=== PATIENT | male | born 1970 | race Caucasian/White ===

== ENCOUNTER 2023-09-25 15:02 | Emergency (ER) | payer OTHER, SELFPAY ==
[2023-09-25 15:21] VITALS: BP 136/101; PULSE 98; RESP 15; TEMP 36.9; O2SAT 96
--- NOTE | 2023-09-25 16:08 | ED.GENADULT ---
HPI - General Adult General Chief complaint: Nausea/Vomiting/Diarrhea Stated complaint: Swelling and Discomfort Time Seen by Provider: 09/25/23 16:15 Source: patient, RN notes reviewed and old records reviewed Mode of arrival: ambulatory Limitations: no limitations History of Present Illness HPI narrative: 53-year-old male to [facility] for complaint of abdominal swelling And diarrhea for 6 weeks. Patient reports history of ulcerative colitis and C diff. Patient reports seeing attorney law clerk 2 months ago and recently undergoing stool diagnostics through [facility]. Patient states he was called this morning with results and not offered medications. Patient states he is upset that he has not been given antibiotics by any provider over the past 8 weeks. Patient requesting course of antibiotics. Patient states that he is tired of dicking around With his symptoms without getting antibiotic treatment. Patient denies blood in stool, abdominal pain, nausea, vomiting, fever, Appetite changes, urinary changes, allergies, shortness of breath, chest pain. Patient able to tolerate fluids by mouth. Respirations even and nonlabored. Patient hypertensive in triage. Patient in no acute distress. Related Data Home Medications Medication Instructions Recorded Confirmed omeprazole 20 mg capsule,delayed 20 mg PO DAILY 09/25/23 09/25/23 release sulfasalazine 500 mg tablet 2,000 mg PO 09/25/23 Allergies Allergy/AdvReac Type Severity Reaction Status Date / Time No Known Allergies Allergy Verified 09/25/23 15:24 Review of Systems Review of Systems: All systems reviewed & are unremarkable except as noted in HPI and below Constitutional: Constitutional: Reports no additional constitutional complaints Eyes: Eyes: Reports no additional eye complaints ENT: Reports system reviewed and no additional complaints, except as documented Cardiovascular: Cardiovascular: Reports no additional cardiovascular complaints, Denies chest pain and Denies dyspnea Respiratory: Respiratory: Reports no additional respiratory complaints, Denies cough and Denies dyspnea Gastrointestinal: Gastrointestinal: Reports as per HPI, Denies abdominal pain, Denies melena, Reports bloating, Denies hematochezia, Denies constipation, Denies dysphagia, Reports diarrhea, Denies nausea and Denies vomiting Musculoskeletal: Musculoskeletal: Reports no additional musculoskeletal complaints Neurologic: Reports system reviewed and no additional complaints, except as documented Psychiatric: Psychiatric: Reports no additional psychiatric complaints PMFSH Comments At the time of my signature, I reviewed and agree with the nursing past medical, surgical, social, and family history. There is no relevant family history pertinent to the patient complaint. Exam Const: General: comfortable, no acute distress, well developed, alert, anxious, well groomed and well nourished Nutritional Appearance: well nourished Orientation/consciousness: patient oriented x3 Limitations: no limitations HENMT: Head: normal to inspection Ears: external ears normal Face/Nose/Sinus: Normal external nose present, Normal nares present, normal facial exam, No erythema and No edema Face and sinus: normal facial exam, no erythema and no edema Mouth: Yes Normal oral and palatal mucosa present Eyes: General: appearance normal, both eyes and all related structures Neck: Neck: normal visual inspection, full ROM and no meningeal signs Chest: Chest palpation & inspection: normal inspection of the chest Resp: Effort & Inspection: normal respiratory effort and able to speak in complete sentences Cardio: Jugular venous distension: no JVD Rate: regular rate Rhythm: regular rhythm Back/Spine/Pelvis: Cervical Spine: cervical ROM normal Skin: General skin exam: normal color, no rashes or lesions noted and turgor normal Neuro: General: patient oriented x3, gait normal, moves all extremities and no
== END 2023-09-25 16:28 | disposition left against medical advice (07) ==
PROVIDERS: Emergency Provider Nurse Practitioner Family; PCP Nurse Practitioner
DX: R19.7 Diarrhea, unspecified (principal)
CPT/HCPCS: 99211; G0463

== ENCOUNTER 2023-11-13 09:50 | Outpatient (CLI) | payer OTHER, SELFPAY ==
[2023-11-13 18:54] LABS: Basophils Absolute Auto 0.1 K/mm3 (0.0-0.1); Basophils Percent Auto 1.4 % (0.2-1.2); Eosinophils Absolute Auto 0.2 K/mm3 (0-0.3); Eosinophils Percent Auto 3.1 % (0-4.4); Hematocrit 43.1 % (42.0-52.0); Hemoglobin 14.4 g/dL (14.0-18.0); Immature Granulocyte Absolute 0.01 K/mm3 (0.00-0.031); Immature Granulocyte Percent A 0.2 % (0-0.5); Lymphocytes Absolute Auto 1.82 K/mm3 (0.9-3.2); Mean Corpuscular HGB Conc 33.4 g/dl (32-36); Mean Corpuscular Hemoglobin 30.7 pg (26-34); Mean Corpuscular Volume 91.9 fl (80-100); Mean Platelet Volume 10.5 fl (7.4-10.4); Monocytes Absolute Auto 0.5 K/mm3 (0.1-0.6); Monocytes Percent Auto 7.1 % (2.6-8.5); Neutrophils Absolute Auto 3.9 K/mm3 (1.3-6.7); Neutrophils Percent Auto 60.2 % (45.5-73.1); Platelet Count Result 278 k/mm3 (150-375); Red Blood Count 4.69 M/mm3 (4.6-6.20); Red Cell Distribution Width 12.8 % (11.5-14.5); White Blood Count 6.5 K/mm3 (4.5-10.0)
[2023-11-13 20:36] LABS: Alanine Aminotransferase 44 U/L (6-50); Albumin Level 4.6 g/dL (3.5-5.1); Alkaline Phosphatase 68 U/L (38-126); Anion Gap 8 mmol/L (4-12); Aspartate Amino Transferase 35 U/L (17-59); Bilirubin,Total 0.8 mg/dL (0.2-1.3); Blood Urea Nitrogen 18 mg/dL (9-20); Calcium 9.9 mg/dL (8.4-10.2); Carbon Dioxide 25 mmol/L (22-30); Chloride 105 mmol/L (98-107); Cholesterol 222 mg/dL (0-200); Estimated Glomerular Filt Rate > 60; Glucose 114 mg/dL (65-110); HDL Direct 52 mg/dL; Potassium 4.2 mmol/L (3.4-5.0); Sodium 138 mmol/L (137-145); Triglycerides 119 mg/dL (<150)
[2023-11-13 20:47] LABS: LDL Cholesterol Direct 134 mg/dL
[2023-11-13 21:06] LABS: Prostate Specific Antigen 1.9 ng/mL (< OR = 4.0)
[2023-11-14 08:25] LABS: Hemoglobin A1C 4.4 % (<5.7)
[2023-11-20 16:24] LABS: Apolipoprotein B 120 mg/dL
== END 2023-11-13 09:51 | disposition home or self-care (01) ==
LOC: ANHGOSHLAB 09:51
PROVIDERS: PCP Nurse Practitioner; Visit Provider Nurse Practitioner
DX: Z12.5 Encounter for screening for malignant neoplasm of prostate (principal); I10 Essential (primary) hypertension; R73.9 Hyperglycemia, unspecified
CPT/HCPCS: 36415; 80053; 80061; 82172; 83036; 84153; 85025; G0103

== ENCOUNTER 2024-03-11 10:48 | Outpatient (CLI) | payer OTHER, SELFPAY ==
--- OUTSIDE RECORDS SUMMARY | 2024-03-11 11:34 | XMS_ITS ---
Author Organization [employer], [facility] Address [address] [place] [address] Care Team Providers Care Deck Molder Name Role Phone Miri Forrest Gen [phone] Encounters Encounter Location Date Provider Diagnosis [facility] [place] [address] 10/05/2023 Miri Forrest Plan Of Treatment No Information Progress Notes * Elvin MCGOVERN EDOB:[birth year] (53 yo M)Acc No.[id number]:10/05/2023 Patient:?Elvin Mcgovern :1970???Age:53 Y???Sex:Male Address:[address], [place], [address] * true * Date:? Generated for Printi junaid/Arnieg/eTransmitting on:?03/11/2024 11:34 AM SOLVENT RECOVERER
--- OUTSIDE RECORDS SUMMARY | 2024-03-11 11:35 | XMS_ITS | Clinical Summary ---
Author Organization [facility] Address [address] [place] [address]. [place], [place] [address] [place] [address] Care Team Providers Care Frame Catcher Name Role Phone Mariluz Salcedo APRN Primary Care Provider Encounters Date Type Department Care Team Description 01/28/2024 2:52 PM CAT TENDER - 01/28/2024 11:59 PM CAT TENDER Hospital Encounter [facility] [address] [place] [address] Anand Villalta MD Discharge Disposition: Home or Self Care (Routine Discharge) 01/28/2024 Travel from Last 3 Months Social History Tobacco Use Types Packs/Day Years Used Date Smoking Tobacco: Never Assessed Sex and Gender Information Value Date Recorded Sex Assigned at Not on file Legal Sex Male 10:41 AM CAT TENDER Gender Identity Not on file Sexual Orientation Not on file Plan of Treatment Health Maintenance Due Date Last Done Comments Colorectal Cancer Screening Colonoscopy (10 Years) 1971 Annual Physical 1974 Hepatitis B Vaccines (1 of 3 - 19+ 3-dose series) 1990 COVID-19 Vaccine (2023- season) 2023 03/31/2020, 03/02/2020 Influenza Adult (#1) 2023 DTaP, Tdap and Td Vaccines (5 - Td or Tdap) 10/07/2026 10/07/2016, 09/25/2005, 02/10/2005, Additional history exists Hepatitis C Completed 04/08/2017 Zoster Vaccines Completed 06/06/2021, 02/14/2021 Meningococcal B Vaccine Aged Out No l onger eligible based on patient's age to complete this topic Meningococcal Vaccine Aged Out No mitchell zoe eligible based on patient's age to complete this topic Pneumococcal Vaccine: Pediatrics (0 to 5 Years) and At-Risk Patients (6 to 64 Years) Aged Out No longer eligible based on patient's age to complete this topic RSV Immunizations Under 20 Months Aged Out No longer eligible based on patient's age to complete this topic Procedures Procedure Name Priority Date/Time Associated Diagnosis Comments CT HEART DIAG CALCIUM SCORE Routine 01/28/2024 3:06 PM CAT TENDER Screening for ischemic heart disease from Last 3 Months Results * CT HEART DIAG CALCIUM SCORE (01/28/2024 3:06 PM CAT TENDER) Anatomical Region Laterality Modality Computed Tomogra phy 01/28/2024 3:10 PM CAT TENDER Impressions 01/28/2024 3:12 PM CAT TENDER IMPRESSION: Total Cardiac Calcium Score: 1.4. Minimal plaque burden, low risk. ??Significant coronary artery disease very unlikely. Referred By: ANAND VILLALTA Interpreted By: Gómez Garcia MD, 01/28/2024 3:10 PM Narrative 01/28/2024 3:12 PM CAT TENDER [address] [address] EXAMINATION: Multislice Helical CT Coronary Calcium Scoring EXAM DATE/TIME: 01/28/2024 2:52 PM REASON FOR EXAM: ??screening, ??history of hypertension. ??History of CAD. COMPARISON: None available. TECHNIQUE: ??Multislice helical CT images of the proximal coronary arteries with a computer generated calcification score. Automated exposure control was utilized for dose reduction. FINDINGS: Calcium scoring: Left main: 0 ?LAD: 0 Circumflex: 1.4 ? Right coronary: 0 ?? Total Score: 1.4 ? Extra coronary findings: No suspicious pulmonary nodules. ??No adenopathy. ??Small hiatal hernia. Calcium score guidelines: Total Score* Calcium Plaque [place] ??*Risk ?*Probability of significant CAD 0 ?No Plaque ?Very Low ? Very unlikely 1-10 ?Minimal Plaque ? Low ?Unlikely 11-100 ?Mild Plaque ?Moderate ? Low likelihood of significant ? stenosis <50% ? 101-400 ? Moderate Plaque ?Moderately High ?Moderate likelihood of ? significant stenosis (>50%) Over 400 ?Extensive Plaque ? High ?High likelihood of ?significant stenosis (>50%) The amount of coronary artery calcification correlates with the severity of coronary atherosclerosis and the probability of future significant event. Calcification is not site specific for stenosis and does not identify non-calcified atherosclerotic plaque, but rather indicates the extent of atherosclerosis in the coronary arteries overall. The score may be used as an indicator for risk factor modification or additional cardiac testing. Significant change in calcium score over time may be indicative of subsequent disease development or useful as a benchmark to assess preventative programs. Procedure Note Gómez Garcia MD - 01/28/[address] [address] EXAMINATION: Multislice Helical CT Coronary Calcium Scoring EXAM DATE/TIME: 01/28/2024 2:52 PM REASON FOR EXAM: screening, history of hypertension. History of CAD. COMPARISON: None available. TECHNIQUE: Multislice helical CT images of the proximal coronary arterieswith a computer generated calcification score. Automated exposure controlwas utilized for dose reduction. FINDINGS: Calcium scoring: Left main: 0 LAD: 0 Circumflex: 1.4 Right coronary: 0 Total Score: 1.4 Extra coronary findings: No suspicious pulmonary nodules. No adenopathy.Small hiatal hernia. Calcium score guidelines: Total Score* Calcium Plaque [place] *Risk *Probability ofsignificant CAD 0 No Plaque Very LowVery unlikely 1-10 Minimal Plaque LowUnlikely 11-100 Mild Plaque ModerateLow likelihood of significant stenosis <50% 101-400 Moderate Plaque Moderately HighModerate likelihood of significant stenosis (>50%) Over 400 Extensive Plaque HighHigh likelihood of significant stenosis (>50%) The amount of coronary artery calcification correlates with the severityof coronary atherosclerosis and the probability of future significantevent. Calcification is not site specific for stenosis and does not identify non- calcifiedatherosclerotic plaque, but rather indicates the extent of atherosclerosisin the coronary arteries overall. The score may be used as an indicator for risk factor modification oradditional cardiac testing. Significant change in calcium score over timemay be indicative of subsequent disease development or useful as a benchmark to assess preventativeprograms. IMPRESSION: Total Cardiac Calcium Score: 1.4. Minimal plaque burden, low risk.Significant coronary artery disease very unlikely. Referred By: ANAND VILLALTA Interpreted By: Gómez Garcia MD, 01/28/2024 3:10 PM us Anand Villalta MD CT Final Res ult from Last 3 Months Insurance AENA Care Teams Frame Catcher Relationship Specialty Start Date End Date Mariluz Salcedo APRN [address] [place] [address] PCP - General NURSE PRACTITIONER 12/18/24
--- OUTSIDE RECORDS SUMMARY | 2024-03-11 11:35 | XMS_ITS | Clinical Summary ---
Author Organization [facility] Address [address] [facility] [address] [place] [address] Phone Care Team Providers Care Motel Front Desk Clerk Name Role Phone Unavailable Primary Care Provider Unavailabl e Allergies No known active allergies Medications folic acid (FOLVITE) 1 MG Tablet Take 1 tab by mouth once daily Active Turmeric Powder 2 times daily. Active azaTHIOprine (IMURAN) 50 MG Tablet TAKE THREE TABLETS BY MOUTH ONCE DAILY 90 Tab 06/01/2018 Active sulfaSALAzine (AZULFIDINE) 500 MG Tablet Take 2 Tabs by mouth 4 times daily. 240 Tab 11 12/03/2019 Active omeprazole (PriLOSEC) 20 MG CAPSULE DELAYED RELEASE Take 1 Capsule by mouth daily. 30 Capsule 03/26/2021 Active Active Problems Problem Noted Date Diagnosed Date Ulcerative colitis Esophageal reflux Immunizations Immunization Administration Dates Next Due DTAP VACCINE 06/11/1976 MMR Vaccine 09/27/2005,03/07/1976,08/06/1972 TDAP Vaccine 10/07/2016,09/25/2005 Family History Medical History Relation Name Comments Colon Cancer Father Prostate Cancer Father Breast Cancer Maternal Grandmother Breast Cancer Mother Relation Name Status Comments Father Alive Maternal Grandmother Mother Alive Social History Tobacco Use Types Packs/Day Years Used Date Smoking Tobacco: Never Smokeless Tobacco: Never Alcohol Use Standard Drinks/Week Comments No 0 (1 standard drink = 0.6 oz pur e alcohol) social Sex and Gender Information Value Date Recorded Sex Assigned at Not on file Legal Sex Male 7:42 PM CDT Gender Identity Not on file Sexual Orientation Not on file Last Filed Vital Signs Vital Sign Reading Time Taken Comments Blood Pressure 129/96 04/08/2017 11:34 AM SCHOOL PSYCHOMETRIST Pulse 77 04/08/2017 10:07 AM SCHOOL PSYCHOMETRIST Temperature 36 ??C (96.8 ??F) 04/08/2017 11:34 AM SCHOOL PSYCHOMETRIST Respiratory Rate 14 04/08/2017 11:34 AM SCHOOL PSYCHOMETRIST Oxygen Saturation 93% 04/08/2017 11:34 AM SCHOOL PSYCHOMETRIST Inhaled Oxygen Concentration - - Weight 105.7 kg (233 lb) 04/08/2017 10:07 AM SCHOOL PSYCHOMETRIST Height 182.9 cm (6') 04/08/2017 10:07 AM SCHOOL PSYCHOMETRIST Body Mass Index 31.6 04/08/2017 10:07 AM SCHOOL PSYCHOMETRIST Plan of Treatment Health Maintenance Due Date Last Done Comments Hepatitis B Immunization (1 of 3 - 19+ 3-dose series) 1990 Zoster Immunization (1 of 2) 1990 Colonoscopy 04/08/2018 04/08/2017, 12/04/2009 Colorectal Cancer Screening 04/08/2018 SARS-COV-2 Immunization (3 - Moderna risk series) 04/28/2020 03/31/2020, 03/02/2020 Cologuard 2021 Immunochemical Fecal Occult Blood 2021 Pneumococcal Immunization (5 0+ years) (1 of 1 - PCV) 2021 Influenza Immunization (#1) 2023 Respiratory Syncytial Virus (RSV) Immunization (Adult) (1 - 1-dose 75+ series) 2046 04/08/2017, 12/04/2009 DTaP/Tdap/Td Immunization Discontinued 2016, 09/25/2005, 06/11/1976 Hepatitis C Virus (HCV) Screening Completed 04/08/2017 Meningococcal Immunization (ACWY) Aged Out No longer eligible based on patient's age to complete this topic Rotavirus Immunization Aged Out No lo nger eligible based on patient's age to complete this topic Procedures Procedure Name Priority Date/Time Associated Diagnosis Comments HEPATITIS PANEL ACUTE (AHP) Routine 04/08/2017 11:27 AM SCHOOL PSYCHOMETRIST HM COLONOSCOPY Routine 12/04/2009 from Last 3 Months or Most Recently Relevant to Health Maintenance Results * Hepatitis Panel Acute (AHP) (04/08/2017 11:27 AM SCHOOL PSYCHOMETRIST) HEPATITIS A IGM ANTIBODY NON DETECTED NON DETECTED 04/09/2017 2:03 AM [facility] Comment: IGM Antibodies to HAV not detected. ??Does not exclude early acute or recovered HAV infection. HEP B CORE AB (IGM) NON DETECTED NON DETECTED 04/09/2017 2:03 AM [facility] Comment: IGM anti-HBC not detected. ??Does not exclude the possibility of exposure to or infection with HBV. HEPATITIS B SURFACE ANTIGEN NON DETECTED NON DETECTED 04/09/2017 2:03 AM [facility] Comment: A nonreactive test result does not exclude the possibility of exposure to or infection with Hepatitis B virus. A nonreactive test result in individuals with prior exposure to hepatitis B may be due to antigen levels below the detection limit of this assay or lack of antigen reactivity to the antibodies in this assay. hepatitis C antibody 0.12 <1 S/CO 04/09/2017 2:03 AM [facility] Comment: Signal/Cutoff ratio ??< 0.79 is Nondetected Signal/Cutoff ratio 0.80-0.99 is Grayzone Signal/Cutoff ratio > 0.99 is Detected Supplemental assays are recommended if signal/cutoff ratio is >/=1.00. ??Signal/cutoff ratio result >/= 5.00 is 97% predictive of positivity for recombinant immunoblot assay (RIBA) and will be reported to the [place] Department of Public Health as required. Blood specimen (specimen) Butterfly Puncture / Unknown 04/08/2017 11:27 AM SCHOOL PSYCHOMETRIST 04/08/2017 11:46 AM SCHOOL PSYCHOMETRIST us Hadley Spear DO HEMATOLOGY ORDERABLES Final Res ult [facility] [address] [place] [address], [place] * COLONOSCOPY (12/04/2009) us Guru Huggins MD PROCEDURE/MINOR SURGICAL ORDERABLES Final Result from Last 3 Months or Most Recently Relevant to Health Maintenance
--- OUTSIDE RECORDS SUMMARY | 2024-03-11 11:35 | XMS_ITS ---
Author Organization [facility] Address [address] [place] [address] [address] [place] [address] Care Team Providers Care Bond Analyst Name Role Phone Miri Forrest [phone] REASON FOR VISIT see notes from RR and DMS Encounters Encounter Location Date Provider Diagnosis [facility], [address] [place] [address] 09/18/2023 Miri Forrest Diarrhea R19.7 Assessments Encounter Date Diagnosis (ICD Code) Assessment Notes Treatment Notes Treatment Clinical Notes Section Notes 09/18/2023 Diarrhea (ICD-10 - R19.7) Plan Of Treatment Pending Test Test Name Order Date APS Target PCR Panel 09/18/2023 Progress Notes * Elvin MCGOVERN EDOB:[birth year] (53 yo M)Acc No.[id number]:09/18/2023 Patient:?Elvin Mcgovern :1970???Age:53 Y???Sex:Male Address:[address], [place], [address] Subjective: * Chief Complaints: * ???see notes from RR and DMS * Medical History:? * Surgical History:? * Hospitalization/Major Diagno stic Procedure:? * Medications:? Objective: Assessment: * Assessment: 1.?Diarrhea - R19.7? Plan: * Treatment: * Procedure Codes:? * true * Date:? Generated for Printi ng/Faxing/eTransmitting on:?03/11/2024 11:34 AM PRODUCTION LINE WELDER
--- OUTSIDE RECORDS SUMMARY | 2024-03-11 11:35 | XMS_ITS ---
Author Organization [employer], [facility] Address [address] [facility] [address] [place] [address] Care Team Providers Care Real Estate Officer Name Role Phone Miri Forrest Gen [phone] Encounters Encounter Location Date [facility] [place] [address] 09/25/2023 Miri Forrest Plan Of Treatment No Information Progress Notes * Elvin MCGOVERN EDOB:[birth year] (53 yo M)Acc No.[id number]:09/25/2023 Patient:?Elvin Mcgovern :1970???Age:53 Y???Sex:Male Address:[address], [place], [address] * true * Date:? Generated for Printi junaid/Arnieg/eTransmitting on:?03/11/2024 11:34 AM DRY ICE MACHINE OPERATOR
--- OUTSIDE RECORDS SUMMARY | 2024-03-11 11:35 | XMS_ITS | Patient Health Record ---
Author Organization [employer] Address [address] [facility]. [address] [place] [id number] Care Team Providers Care Principal Consulting Engineer Name Role Phone Miri Forrest Unavailable [phone] Allergies No Known Allergies Results Component Value Reference Range Notes MAGNESIUM Reviewed date:08/26/2023 01:14:06 PM Interpretation: Performing Lab:Ashli JUDD [place] Giuliano Wheeler MD Notes/Report: NON-FASTING; NON-FASTING; NON-FASTING; NON-FASTING; NON-FAST FASTING:NO FASTING: NO MAGNESIUM 2.1 1.5-2.5 mg/dL VITAMIN B12 Reviewed date:08/26/2023 01:14:06 PM Interpretation: Performing Lab:Ashli JUDD [place] Giuliano Wheeler MD Notes/Report: NON-FASTING; NON-FASTING; NON-FASTING; NON-FASTING; NON-FAST FASTING:NO FASTING: NO VITAMIN B12 588 670-6629 pg/mL VITAMIN D,25-OH,TOTAL,IA Reviewed date:08/26/2023 01:14:06 PM Interpretation: Performing Lab:Ashli JUDD [id number] Giuliano Wheeler MD Notes/Report: NON-FASTING; NON-FASTING; NON-FASTING; NON-FASTING; NON-FAST FASTING:NO FASTING: NO VITAMIN D,25-OH,TOTAL,IA 21 30-100 ng/mL Vitamin D Status 25-OH Vitamin D: Deficiency: <20 ng/mL Insufficiency: 20 - 29 ng/mL Optimal: > or = 30 ng/mL For 25-OH Vitamin D testing on patients on D2-supplementation and patients for whom quantitation of D2 and D3 fractions is required, the QuestAssureD(TM) 25-OH VIT D, (D2,D3), LC/MS/MS is recommended: order code 44256 (patients >2yrs). See Note 1 Note 1 For additional information, please refer to http://education.Adore Me/faq/OKH770 (This link is being provided for informational/ educational purposes only.) FECAL FAT, QUALITATIVE Reviewed date:09/21/2023 09:44:23 PM Interpretation: Performing Lab:Ashli OCONNELL/Linda Pineda [id number] Lu Smith, [id number] Dakotah Roth M.D.,PhD Notes/Report: SPLIT 09/16/2023 FROM [id number] FECAL FAT, QUALITATIVE Normal Normal LACTOFERRIN, QN, STOOL Reviewed date:09/25/2023 10:39:22 AM Interpretation: Performing Lab:Ashli PULLIAM/Linda [facility],[address] [facility] Micheline Rojas MD,PhD,MAIRA Notes/Report: SPLIT 09/16/2023 FROM [id number] LACTOFERRIN, QN, STOOL >1000.00 <7.25 mcg/mL The following patient samples should be excluded from use in the test: patients with a history of HIV and/or have hepatitis B or C, patients with a history of infectious diarrhea (within 6 months), and patients having had a colostomy and or ileostomy within 1 month. CMP: COMPLETE METABOLIC PANE L Reviewed date:09/18/2023 10:34:50 AM Interpretation: Performing Lab:Ashli JUDD-Pjsjky40059 Lori Cisneros, [id number] Giuliano Wheeler MD Notes/Report: NON-FASTING; NON-FASTING; NON-FASTING; NON-FASTING PATIENT UNABLE TO VOID; ADVISED TO RETURN FOR COLLECTION. GLUCOSE 128 65-99 mg/dL Fasting reference interval For someone without known diabetes, a glucose value >125 mg/dL indicates that they may have diabetes and this should be confirmed with a follow-up test. UREA NITROGEN (BUN) 18 7-25 mg/dL CREATININE 1.16 0.70-1.30 mg/dL EGFR 76 > OR = 60 mL/min/1.73m2 BUN/CREATININE RATIO SEE NOTE: 6-22 (calc) Not Reported: BUN and Creatinine are within reference range. SODIUM 139 135-146 mmol/L POTASSIUM 4.2 3.5-5.3 mmol/L CHLORIDE 105 98-110 mmol/L CARBON DIOXIDE 25 20-32 mmol/L CALCIUM 9.8 8.6-10.3 mg/dL PROTEIN, TOTAL 6.5 6.1-8.1 g/dL ALBUMIN 4.4 3.6-5.1 g/dL GLOBULIN 2.1 1.9-3.7 g/dL (calc) ALBUMIN/GLOBULIN RATIO 2.1 1.0-2.5 (calc) BILIRUBIN, TOTAL 0.5 0.2-1.2 mg/dL ALKALINE PHOSPHATASE 73 35-144 U/L AST 17 10-35 U/L ALT 36 9-46 U/L C difficile Toxins A+B, EIA Reviewed date:09/11/2023 01:22:36 PM Interpretation: Performing Lab:NICHOLE [place] Networks[place] [address] Administration Escobar Smith [address] Notes/Report: NON-FASTING CLOSTRIDIUM DIFFICILE TOXIN/GDH W/REFL TO PCR SEE NOTE CLOSTRIDIUM DIFFICILE TOXIN/GDH W/REFL TO PCR Micro Number: [id number] Test Status: Final Specimen Source: Stool Specimen Quality: Adequate GDH Antigen: Not Detected Toxin A and B: Not Detected COMMENT: No toxigenic C. difficile detected For additional information, please refer to http://education.Adore Me/faq/CQS839 (This link is being provided for informational/educational purposes only.) OVA AND PARASITES WITH GIARD IA ANTIGEN Reviewed date:09/25/2023 10:39:22 AM Interpretation: Performing Lab:[place] [address] Administration Escobar Smith [address] Notes/Report: SPLIT 09/16/2023 FROM [id number] GIARDIA AG, EIA, STOOL SEE NOTE GIARDIA AG, EIA, STOOL Micro Number: [id number] Test Status: Final Specimen Source: Stool Specimen Quality: Adequate Giardia Result 1: Not Detected Reference Range: Not Detected NOTE: Due to intermittent shedding, one negative sample does not necessarily rule out the presence of a parasitic infection. OVA AND PARASITES, CONC AND PERM SMEAR SEE NOTE OVA AND PARASITES, CONC AND PERM SMEAR Micro Number: [id number] Test Status: Final Specimen Source: Stool Specimen Quality: Adequate CONCENTRATION 1: No ova or parasites seen TRICHROME 1: No ova or parasites seen Routine Ova and Parasite exam may not detect some parasites that occasionally cause diarrheal illness. Cryptosporidium Antigen and/or Cyclospora and Isospora Exam may be ordered to detect these parasites. One negative sample does not necessarily rule out the presence of a parasitic infection. For additional information, please refer to https://education.CallFire/faq/SFE652 (This link is being provided for informational/ educational purposes only.) CBC With Differential/Platel et Reviewed date:09/18/2023 10:34:50 AM Interpretation: Performing Lab:DUTCH, B-[facility] Networks-Jhjehv46025 Lori [facility], QekrmcWM[address] Giuliano Wheeler MD Notes/Report: NON-FASTING; NON-FASTING; NON-FASTING; NON-FASTING PATIENT UNABLE TO VOID; ADVISED TO RETURN FOR COLLECTION. WHITE BLOOD CELL COUNT 7.7 3.8-10.8 Thousand/ uL RED BLOOD CELL COUNT 4.70 4.20-5.80 Million/uL HEMOGLOBIN 14.7 13.2-17.1 g/dL HEMATOCRIT 44.2 38.5-50.0 % MCV 94.0 80.0-100.0 fL MCH 31.3 27.0-33.0 pg MCHC 33.3 32.0-36.0 g/dL RDW 12.1 11.0-15.0 % PLATELET COUNT 328 140-400 Thousand/uL MPV 10.7 7.5-12.5 fL ABSOLUTE NEUTROPHILS 4150 [id number] cells/uL ABSOLUTE LYMPHOCYTES 2241 850-3900 cells/uL ABSOLUTE MONOCYTES 816 200-950 cells/uL ABSOLUTE EOSINOPHILS 393 15-500 cells/uL ABSOLUTE BASOPHILS 100 0-200 cells/uL NEUTROPHILS 53.9 LYMPHOCYTES 29.1 MONOCYTES 10.6 EOSINOPHILS 5.1 BASOPHILS 1.3 CRP Reviewed date:09/18/2023 10:34:50 AM Interpretation: Performing Lab:Ashli JUDD-[id number] Lori Cisneros, [id number] Giuliano Wheeler MD Notes/Report: NON-FASTING; NON-FASTING; NON-FASTING; NON-FASTING PATIENT UNABLE TO VOID; ADVISED TO RETURN FOR COLLECTION. C-REACTIVE PROTEIN 16.1 <8.0 mg/L CRP Reviewed date:08/26/2023 01:14:06 PM Interpretation: Performing Lab:Ashli JUDD-[id number] Lori Cisneros, SndinjBB[address] Giuliano Wheeler MD Notes/Report: NON-FASTING; NON-FASTING; NON-FASTING; NON-FASTING; NON-FAST FASTING:NO FASTING: NO C-REACTIVE PROTEIN 4.9 <8.0 mg/L APS Stool DX - no longer usi ng 03/27/23cb Reviewed date:10/05/2023 05:14:10 PM Interpretation: Performing Lab: Notes/Report: DIAGNOSES GROSSING DESCRIPTION MICROSCOPIC DESCRIPTION Complete 100 microscopic examination is performed. The findings are included in the diagnosis rendered. Textual Pathology Report SEE NOTES VALERIE/SHIG/CAMPY, CULTURE AND SHIGA TOXIN, EIA W/RFL TO E.COLI 0157 CULT Reviewed date:09/25/2023 10:39:22 AM Interpretation: Performing Lab:Ashli [facility] Administration Escobar Smith UifawvrVC[address] Giuliano Wheeler Notes/Report: SPLIT 09/16/2023 FROM [id number] CAMPYLOBACTER SPP. AG,EIA SEE NOTE CAMPYLOBACTER SPP. AG,EIA Micro Number: [id number] Test Status: Final Specimen Source: Stool Specimen Quality: Adequate Campy Ag Result: Not Detected Reference Range: Not Detected SHIGA TOXINS, EIA W/RFL TO E.COLI O157 CULTURE SEE NOTE SHIGA TOXINS, EIA W/RFL TO E.COLI O157 CULTURE Micro Number: [id number] Test Status: Final Specimen Source: Stool Specimen Quality: Adequate Shiga Toxin: Not Detected Reference Range: Not Detected SALMONELLA AND SHIGELLA, CULTURE SEE NOTE SALMONELLA AND SHIGELLA, CULTURE Micro Number: [id number] Test Status: Final Specimen Source: Stool Specimen Quality: Adequate Result: No Salmonella or Shigella isolated CMP: COMPLETE METABOLIC PANE L Reviewed date:08/26/2023 01:14:06 PM Interpretation: Performing Lab:DUTCH B-[facility]-[id number] Lori Cisneros, IaogmdND[address] Giuliano Wheeler MD Notes/Report: NON-FASTING; NON-FASTING; NON-FASTING; NON-FASTING; NON-FAST FASTING:NO FASTING: NO GLUCOSE 113 65-139 mg/dL Non-fasting reference interval UREA NITROGEN (BUN) 19 7-25 mg/dL CREATININE 1.39 0.70-1.30 mg/dL EGFR 61 > OR = 60 mL/min/1.73m2 BUN/CREATININE RATIO 14 6-22 (calc) SODIUM 140 135-146 mmol/L POTASSIUM 4.2 3.5-5.3 mmol/L CHLORIDE 105 98-110 mmol/L CARBON DIOXIDE 26 20-32 mmol/L CALCIUM 10.3 8.6-10.3 mg/dL PROTEIN, TOTAL 6.7 6.1-8.1 g/dL ALBUMIN 4.8 3.6-5.1 g/dL GLOBULIN 1.9 1.9-3.7 g/dL (calc) ALBUMIN/GLOBULIN RATIO 2.5 1.0-2.5 (calc) BILIRUBIN, TOTAL 0.8 0.2-1.2 mg/dL ALKALINE PHOSPHATASE 73 35-144 U/L AST 23 10-35 U/L ALT 42 9-46 U/L CBC With Differential/Platel et Reviewed date:08/26/2023 01:14:06 PM Interpretation: Performing Lab:DUTCH B[facility]-Pmhrlt75050 Lori Cisneros, [id number] Giuliano Wheeler MD Notes/Report: NON-FASTING; NON-FASTING; NON-FASTING; NON-FASTING; NON-FAST FASTING:NO FASTING: NO WHITE BLOOD CELL COUNT 10.4 3.8-10.8 Thousand/ uL RED BLOOD CELL COUNT 4.75 4.20-5.80 Million/uL HEMOGLOBIN 14.6 13.2-17.1 g/dL HEMATOCRIT 44.2 38.5-50.0 % MCV 93.1 80.0-100.0 fL MCH 30.7 27.0-33.0 pg MCHC 33.0 32.0-36.0 g/dL RDW 12.1 11.0-15.0 % PLATELET COUNT 346 140-400 Thousand/uL MPV 10.2 7.5-12.5 fL ABSOLUTE NEUTROPHILS 6635 4546-5635 cells/uL ABSOLUTE LYMPHOCYTES 2517 850-3900 cells/uL ABSOLUTE MONOCYTES 707 200-950 cells/uL ABSOLUTE EOSINOPHILS 437 15-500 cells/uL ABSOLUTE BASOPHILS 104 0-200 cells/uL NEUTROPHILS 63.8 LYMPHOCYTES 24.2 MONOCYTES 6.8 EOSINOPHILS 4.2 BASOPHILS 1.0 Reason For Referral No Information Medications Medication SIG (Take, Route, Fr equency, Duration) Notes Start Date End Date Status sulfaSALAzine 500 MG 4 tablets Orally ev coni 12 hours for 90 days Active Omeprazole 20 MG [facility] 30 MINUTES BEFORE MORNING MEAL FOR 90 DAYS Orally Once a day for 90 days Active OTC/Vitamins MVI Active Social History Tobacco Use: Social History Observation Description Date Details (start date - stop date) Current Smoker NA - NA Tobacco Use/Smoking Question Answer Notes Are you a current smoker How often do you smoke cigarettes? some days, bu t not every day Problems Problem Type SNOMED Code ICD Code Onset Dates Problem Status W/U Status Risk Notes Problem 885933509 Family history of colon cancer (Z80.0) Active confirmed He has a family history of colon cancer in his father. Problem 19416839 Ulcerative colitis (K51.90) Active confirmed He was diagnosed with ulcerative colitis in the early 1999's. His symptoms have been controlled with sulfasalazine 500 mg 4 tablets twice a day. His bowel movements have been normal, soft, and formed. Lacks alarming features of mucus or blood in his stool, abdominal pain or cramping. Problem 923320640 History of colon polyps (Z86.010) Active confirmed His last colonoscopy was in 2018, and he was noted to have 1 polyp. At time of visit report is not available to review. Problem 257365193 Long-term use of high-risk medication (Z79.899) Active confirmed Problem 232236581 Acid reflux (K21.9) Active confirmed His reflux symptoms are controlled with omeprazole 20 mg as needed. He denies having any nausea, vomiting, or reflux. Problem 118444698 Malabsorption (K90.9) Active confirmed He has had a low vitamin D level in the past. He is not currently on oral vitamin D Vital Signs Height 73 in 05/27/2023 Weight 239 lbs 05/27/2023 BMI 31.53 kg/m2 05/27/2023 Procedures Procedure Date Ordered Date Performed Result Body Sit e Colonoscopy 05/27/2023 N/A Encounters Encounter Location Date Provider Diagnosis [address] [place] [address] 05/27/2023 Miri Forrest Ulcerative colitis K51.90 ; Acid reflux K21.9 ; History of colon polyps Z86.010 ; Family history of colon cancer Z80.0 and Malabsorption K90.[address] [place] [address] 03/28/2023 Miri Forrest [address] [place] [address] 03/28/2023 Miri Forrest [address] [place] [address] 08/25/2023 Miri Forrest Diarrhea R19.[address] [place] [address] 08/26/2023 Miri Forrest Low vitamin D level R79.[address] [place] [address] 09/11/2023 Miri Forrest Ulcerative colitis K51.90 and Diarrhea R19.7 [facility], [address] [place] [address] 09/18/2023 Miri Forrest Diarrhea R19.[address] [place] [address] 09/25/2023 Miri Forrest [address] [place] [address] 10/05/2023 Miri Forrest Assessments Encounter Date Diagnosis (ICD Code) Assessment Notes Treatment Notes Treatment Clinical Notes Section Notes 05/27/2023 Ulcerative colitis (ICD-10 - K51.90) He was diagnosed with ulcerative colitis in the early . His symptoms have been controlled with sulfasalazine 500 mg 4 tablets twice a day. His bowel movements have been normal, soft, and formed. Lacks alarming features of mucus or blood in his stool, abdominal pain or cramping. Continue on sulfasalazine as prescribed. Will sign a release form for his 2018 colonoscopy report including pathology to be sent to our office for review and his records. Reviewed colonoscopy procedure and risk. 05/27/2023 Acid reflux (ICD-10 - K21.9) His reflux symptoms are controlled with omeprazole 20 mg as needed. He denies having any nausea, vomiting, or reflux. Reviewed PPI medication profile along with GERD diet and lifestyle modifications. He will continue to use omeprazole as needed. If acid reflux symptoms become persistent he will start medication daily. 08/25/2023 Diarrhea (ICD-10 - R19.7) 08/26/2023 Low vitamin D level (ICD-10 - R79.89) 09/11/2023 Ulcerative colitis (ICD-10 - K51.90) 09/18/2023 Diarrhea (ICD-10 - R19.7) 09/11/2023 Diarrhea (ICD-10 - R19.7) 05/27/2023 History of colon polyps (ICD-10 - Z86.010) His last colonoscopy was in 2018, and he was noted to have 1 polyp. At time of visit report is not available to review. 05/27/2023 Family history of colon cancer (ICD-10 - Z80.0) He has a family history of colon cancer in his father. 05/27/2023 Malabsorption (ICD-10 - K90.9) He has had a low vitamin D level in the past. He is not currently on oral vitamin D 05/27/2023 Other Elvin verbalize d clear understanding of plan, recommendations, and all questions were answered. He will follow-up with our office with any GI concerns going forward. Elvin will be due for his annual visit in 1 year. Plan Of Treatment Pending Test Test Name Order Date Colonoscopy 06/04/2021 Colonoscopy 05/27/2023 VITAMIN D,25-OH,TOTAL,IA 08/26/2023 Hepatic Function 07/16/2021 APS Target PCR Panel 09/18/2023 Insurance Providers Payer Name Payer Address Payer Phone Subscriber Number Group Number Insured Name Patient Relationship to Insured Coverage Start Date Coverage End Date [employer] E2 [address] [place] [address] [id number] Spouse - patient is the spouse of the insured Medical (General) History Medical History History ICD Code GERD Ulcerative Colitis Colon Polyps Skin Cancer Surgical History Surgery Date(Month/Year) Colonoscopy 2018 Skin Cancer Removal [place] Teeth Extraction Hospitalization History Reason Date(Month/Year) Ulcerative Colitis
--- OUTSIDE RECORDS SUMMARY | 2024-03-11 11:35 | XMS_ITS | Referral Summary ---
Author Organization [facility] Medical Office Building B Address [address] [place] [address] Care Team Providers Care Vegetable Loader Name Role Phone Mariluz Salcedo NP Primary Care Provider [phone] Encounters Date Type Department Care Team Description 01/27/2024 10:38 AM MOTOR ANALYST Anesthesia Event [address] [address] Emiliano Benton Jr., MD Zirkelbach, Cecilia A. PAY AGENT 01/27/2024 10:30 AM MOTOR ANALYST - 01/27/2024 11:00 AM MOTOR ANALYST Surgery [address] [address] Hadley Spear, COLON BIOPSY 01/27/2024 9:21 AM MOTOR ANALYST - 01/27/2024 12:07 PM MOTOR ANALYST Hospital Encounter [address] [address] Hadley Spear, DO High risk medications (not anticoagulants) long-term use (Primary Dx); Family history of colon cancer in father; History of colonic polyps; Ulcerative colitis, chronic, unspecified complication (HCC); Ulcerative pancolitis without complication (CMS/HCC) (HCC) Discharge Disposition: Discharge to home or self care from Last 3 Months Allergies No known active allergies Medications azaTHIOprine (IMURAN) 50 mg tablet TAKE THREE TABLETS BY MOUTH ONCE DAILY 9 Active folic acid (FOLVITE) 1 mg tablet Take 1 tab by mouth once daily Active omeprazole (PriLOSEC) 20 mg capsule Take 1 capsule (20 mg total) by mouth daily 9 Active turmeric, bulk, 100 % powder 2 times daily Active sulfaSALAzine (AZULFIDINE) 500 mg tablet Take 2 tablets (1,000 mg total) by mouth 4 times daily 9 Active cholecalcifero l (VITAMIN D-3) 2000 unit capsule Take 1 capsule (2,000 Units total) by mouth daily 30 capsule 0 Active losartan (COZAAR) 25 mg tablet Take 1 tablet (25 mg total) by mouth daily Active budesonide EC (ENTOCORT EC) 3 mg 24 hr capsule TAKE 3 CAPSULES BY MOUTH EVERY MORNING 270 capsule 1 5 Active budesonide EC (ENTOCORT EC) 3 mg 24 hr capsule Take 3 capsules (9 mg total) by mouth every morning 90 capsule 4 025 Discontinued Active Problems Problem Noted Date Diagnosed Date Family history of colon cancer in father 024 History of colonic polyps 11/24/2023 Ulcerative colitis, chronic, unspecified complic ation 11/24/[address] scan of lung 02/24/2019 Arthritis of left acromioclavicular joint 2019 Overview (02/16/2019): Added automatically from request for surgery [id number] Ulcerative colitis 06/19/2011 Assessment & Plan (02/24/2019 10:17 AM MOTOR ANALYST): Stable on current home meds Resolved Problems Problem Noted Date Diagnosed Date Resolved Date Chest pain 02/24/2019 05/16/2019 Assessment & Plan (02/24/2019 10:20 AM MOTOR ANALYST): Atypical, serial enzymes Other headache syndrome 02/24/2019 04/0 06/2019 Biceps tendonitis on left 02/16/2019 Overview (02/16/2019): Added automatically from request for surgery [id number] Nontraumatic rotator cuff tear, left 02/16/2019 05/16/2019 Overview (02/16/2019): Added automatically from request for surgery [id number] Impingement syndrome of left shoulder 02/16/2019 05/16/2019 Overview (02/16/2019): Added automatically from request for surgery [id number] Social History Tobacco Use Types Packs/Day Years Used Date Smoking Tobacco: Some Days Cigars Smokeless Tobacco: Never Alcohol Use Standard Drinks/Week Comments Yes 0 (1 standard drink = 0.6 oz pur e alcohol) social AUDIT-C Answer Date Recorded Q1: How often do you have a drink containing alc ohol? Monthly or less 01/26/2024 Average Number of Drinks Not on file 024 Frequency of Binge Drinking Not on file 01/10 Personal Safety Answer Date Recorded Have you ever been in or are you currently in a harmful physical or emotional relationship or is someone making you feel afraid or unsafe? Denies 01/27/2024 Sex and Gender Information Value Date Recorded Sex Assigned at Not on file Legal Sex Male 7:35 AM MOTOR ANALYST Gender Identity Not on file Sexual Orientation Not on file Last Filed Vital Signs Vital Sign Reading Time Taken Comments Blood Pressure 149/106 01/27/2024 11:50 AM MOTOR ANALYST BP was elevated preop, pt stated has not taken his bp med today, will take when he gets home. Pulse 72 01/27/2024 11:50 AM MOTOR ANALYST Temperature 36.6 ??C (97.8 ??F) 01/27/2024 1 1:50 AM MOTOR ANALYST Respiratory Rate 18 01/27/2024 11:5 0 AM MOTOR ANALYST Oxygen Saturation 96% 01/27/2024 11: 50 AM MOTOR ANALYST Inhaled Oxygen Concentration - - Weight 106.6 kg (235 lb) 01/27/2024 9:3 3 AM MOTOR ANALYST Height 182.9 cm (6') 01/27/2024 9:33 AM MOTOR ANALYST Body Mass Index 31.87 01/27/2024 9:33 AM MOTOR ANALYST Plan of Treatment Not on file Procedures Procedure Name Priority Date/Time Associated Diagnosis Comments SURGICAL PATHOLOGY STAT 01/27/2024 1: 38 PM MOTOR ANALYST Family history of colon cancer in father History of colonic polyps Ulcerative colitis, chronic, unspecified complication (HCC) COLON BIOPSY 01/27/2024 10:33 AM MOTOR ANALYST Family history of colon cancer in father History of colonic polyps Ulcerative colitis, chronic, unspecified complication (HCC) COLONOSCOPY 01/27/2024 9:34 AM MOTOR ANALYST from Last 3 Months Results * Surgical pathology (01/27/2024 1:38 PM MOTOR ANALYST) Tissue (Colon, Biopsy) 01/27/2024 11:15 AM MOTOR ANALYST Comment:Colon biopsy to rule out dysplasia Tissue (Colon, Biopsy) 01/27/2024 11:15 AM MOTOR ANALYST Comment:Colon biopsy to rule out dysplasia Tissue (Colon, Biopsy) 01/27/2024 11:16 AM MOTOR ANALYST Comment:Colon biopsy to rule out dysplasia Narrative PATHOLOGY [facility] - 01/28/2024 4:10 PM MOTOR ANALYST EPIC results best viewed via link to PDF [facility] Department of Pathology [address] [place] [address] Note to Patients: This report may contain a detailed description of human tissue sent by a health care provider to the laboratory for pathologic evaluation. The content of this report is essential for diagnosis and may provide important critical findings. This information may be unfamiliar to patients to review without a medical professional present. It is advised that the patient review this report in the presence of a health care provider who can answer questions and explain the details. Final Report Patient Name: ??EMILIANO MCGOVERN Address: ??[address] [place] [address] , ??[place], [place] ??[address]- Gender: ??M : ??1970 (Age: 53) Service: ??Gastro Location: ??[facility] Hospital #: ??[id number] Patient Type: ??[facility] Accession # ?[id number] Taken: ??01/27/2024 Received: ??01/27/2024 Accessioned: ??01/27/2024 Reported: ??01/28/2024 Physician(s):Dr. Hadley Spear D.O. Diagnosis: A. Ascending colon, endoscopic biopsy- ? Minimal focally active colitis ? Significant chronic changes not demonstrated ? Negative for dysplasia and carcinoma B. ??Transverse colon, endoscopic biopsy- ? Moderate active colitis with moderate to marked chronic change ? Negative for dysplasia and carcinoma C. Left colon, endoscopic biopsy- ? Moderate active colitis with moderate ??chronic change ? Negative for dysplasia and carcinoma Jackelyn Hoyos M.D. Report Electronically Reviewed and Signed Out By ??Jackelyn Hoyos M.D. ??01/28/2024 16:10:07 Specimen(s) Received: A: Ascending colon biopsy B: Transverse colon biopsy C: L. colon biopsy Microscopic Description: Microscopic examination corroborates the diagnosis. Clinical History: Family history of colon cancer in father. ??History of colonic polyps. ??Ulcerative colitis, chronic. ??Colonoscopy. Gross Description: The specimen is submitted in three formalin containers labeled EMILIANO LISA . A. ??The first container is labeled ascending colon biopsy . ??It is multiple fragments of rogers tissue between 1 and 2 mm. ??All in A. B. ??The second container is labeled transverse colon biopsy . ??It is multiple fragments of rogers tissue between 1 and 2 mm. ??All in B. C. ??The third container is labeled left colon biopsy . It is multiple fragments of rogers tissue between 1 and 3 mm. All in C. T.A. Mary Mo., P.A./Jax Gaxiola M.D. REPORT IMAGES AND SCANNED DOCUMENTS, IF INCLUDED, ONLY VIEWABLE IN PDF VERSION OF REPORT The performance characteristics of some immunohistochemical stains, fluorescence in-situ hybridization tests and immunophenotyping by flow cytometry cited in this report (if any) were determined by the Surgical Pathology Department at [facility] as part of an ongoing advanced quality engineer program and in compliance with federally mandated regulations drawn from the Clinical Laboratory Improvement Act of 1988 (CLIA '88). ??Some of these tests rely on the use of analyte specific reagents and are subject to specific labeling requirements by the US Food and Drug Administration. ??Such diagnostic tests may only be performed in a facility that is certified by the Department of Health and Human Services as a high complexity laboratory under CLIA '88. The FDA has determined that such clearance or approval is not necessary. ??This test is used for clinical purposes. ??It should not be regarded as investigational or for research. ??Nevertheless, federal rules concerning the medical use of analyte specific reagents require that the following disclaimer be attached to the report: This test was developed and its performance characteristics determined by the Surgical Pathology Department [facility]. ??It has not been cleared or approved by the U. S. Food and Drug Administration. Note for decalcified specimens: This assay has not been validated on decalcified tissues. Results should be interpreted with caution given the possibility of false negativity on decalcified specimens Hadley Spear DO LAB PATHOLOGY ORDERABLES Final Result PATHOLOGY [facility] [address] [place] [address] * Colonoscopy (01/27/2024 9:34 AM MOTOR ANALYST) Anatomical Region Laterality Modality Other Narrative Procedure Note Hadley Spear, - 01/27/2024 9:34 AM CST [facility] Patient Name: Emiliano Mcgovern Procedure Date: 01/27/2024 9:34 AM Date of : 1970 Admit Type: Outpatient Age: 53 Gender: Male Attending MD: Hadlye Spear D.O. Room: [facility] ENDOSCOPY ROOM 2 Note Status: Finalized Patient Profile: Refer to note in patient chart for documentation of history and physical. Procedure: Colonoscopy Indications: High risk colon cancer surveillance: Personalhistory of colonic polyps, High risk colon cancer surveillance: Ulcerative pancolitis of 8 (or more) years duration, Family history of colon cancer in a first-degree relative before age 60 years, Last colonoscopy 5 years ago Referring MD: JANELLE Philippe Providers: Hadley Spear D.O. Impression: - The examined portion of the ileum was normal. - Internal hemorrhoids. - Ulcerative colitis. Inflammation was found. Thiswas mild in severity. Biopsied. Recommendation: - Discharge patient to home. - Resume previous diet. - Continue present medications. - Await pathology results. - Repeat colonoscopy in 2 years for surveillancebased on pathology results. - Return to GI office in 3 months. -Calcium with vitamin-D. -Entocort 9 mg a day for 1 month, 6 mg a day for 1 month, then 3 mg a day. -Chest x-ray and routine blood work ordered. Medicines: Monitored Anesthesia Care Complications: No immediate complications. Estimated Blood Loss: Estimated blood loss was minimal. Procedure: Pre-Anesthesia Assessment: - Prior to the procedure, a History and Physicalwas performed, and patient medications and allergieswere reviewed. Immediately prior to administration of medications, the patient was re-assessed foradequacy to receive sedatives. The heart rate, respiratory rate, oxygen saturations, blood pressure, adequacyof pulmonary ventilation, and response to care were monitored throughout the procedure. The physical status of the patient was re-assessed after the procedure. - As per anesthesia. The benefits, risks and alternatives of theprocedure and sedation were discussed and informed consentwas obtained. All questions were answered. Please referto the signed informed consent document in the medical record. The bowel preparation used was Miralax via split dose instruction. The bowel preparation usedwas bisacodyl tablets via split dose instruction. The scope was passed under direct vision. The Pediatric Colonoscope [id number] was introduced through the anus and advanced to the the cecum, identified by appendiceal orifice and ileocecalvalve. The terminal ileum, ileocecal valve, appendiceal orifice, and rectum were photographed. Thecolonoscopy was performed without difficulty. The patient tolerated the procedure well. The quality of thebowel preparation was good. Findings: The perianal and digital rectal examinations were normal. The terminal ileum appeared normal. Internal hemorrhoids were found. The hemorrhoids were small. Inflammation characterized by erythema, friability, granularity, pseudopolyps and scarring was found throughout the colon. The inflammation was mild in severity and patchy. Biopsies were takenwith a cold forceps for histology and dysplasia. No additional abnormalities were found on retroflexion. Electronically signed by Hadley Spear M.D. Hadley Spear D.O. 01/27/2024 11:27:58 AM Number of Addenda: 0 Note Initiated On: 01/27/2024 9:34 AM Procedure Code(s): --- Professional --- 50943, Colonoscopy, flexible; with biopsy, single or multiple --- Technical --- 22288, Colonoscopy, flexible; with biopsy, single or multiple Diagnosis Code(s): --- Professional --- Z86.010, Personal history of colonic polyps K51.00, Ulcerative (chronic) pancolitis without complications K64.8, Other hemorrhoids Z80.0, Family history of malignant neoplasm of digestive organs --- Technical --- Z86.010, Personal history of colonic polyps K51.00, Ulcerative (chronic) pancolitis without complications K64.8, Other hemorrhoids Z80.0, Family history of malignant neoplasm of digestive organs CPT copyright 2020 [employer]. All rights reserved. The codes documented in this report are preliminary and upon manager medical affairs reviewmay be revised to meet current compliance requirements. Recognized by the [employer] for promoting quality in endoscopy Hadley Spear DO ENDOSCOPY PROCEDURES Final Res ult from Last 3 Months Additional Health Concerns Infection Onset Date Last Indicated C. difficile Comment:timothy 09/02/2006 09/02/2006 Insurance [facility] CHOICE PLUS [facility] CHOICE PLUS [facility] HMO Advance Directives For more information, please contact: [phone] * Full Code (Latest Code Status on File) Date Activated Date Inactivated Comments 01/27/2024 9:28 AM 01/27/2024 4:08 PM * Full Code Date Activated Date Inactivated Comments 01/27/2024 9:28 AM 01/27/2024 9:28 AM * Full Code Date Activated Date Inactivated Comments 02/23/2019 11:38 PM 02/24/2019 4:33 PM Care Teams Vegetable Loader Relationship Specialty Start Date End Date Mariluz Salcedo NP [address] [facility] [address], [place] [address] PCP - General Internal Medicine 11/05/23
--- OUTSIDE RECORDS SUMMARY | 2024-03-11 11:35 | XMS_ITS | Clinical Summary ---
Author Organization [facility] Medical Office Building B Address [address] [place] [address] Care Team Providers Care Mica Miner Blasting Name Role Phone Mariluz Salcedo NP Primary Care Provider [phone] Allergies No known active allergies Medications azaTHIOprine [...] (02/16/2019): Added automatically from request for surgery [id number] Ulcerative colitis 06/19/2011 Assessment & Plan (02/24/2019 10:17 AM CLOSET ORGANIZER): Stable on current home meds Resolved Problems Problem Noted Date Diagnosed Date Resolved Date Chest pain 02/24/2019 05/16/2019 Assessment & Plan (02/24/2019 10:20 AM CLOSET ORGANIZER): Atypical, serial enzymes Other headache syndrome 02/24/2019 04/0 06/2019 Biceps tendonitis on left 02/16/2019 Overview (02/16/2019): Added automatically from request for surgery [id number] Nontraumatic rotator cuff tear, left 02/16/2019 05/16/2019 Overview (02/16/2019): Added automatically from request for surgery [id number] Impingement syndrome of left shoulder 02/16/2019 05/16/2019 Overview (02/16/2019): Added automatically from request for surgery [id number] Encounters Date Type Department Care Team Description 01/27/2024 10:38 AM CLOSET ORGANIZER Anesthesia Event [address] [address] Emiliano Benton Jr., MD Zirkelbach, Cecilia A., CRNA 01/27/2024 10:30 AM CLOSET ORGANIZER - 01/27/2024 11:00 AM CLOSET ORGANIZER Surgery [address] [address] Hadley Spear, DO COLON BIOPSY 01/27/2024 9:21 AM CLOSET ORGANIZER - 01/27/2024 12:07 PM CLOSET ORGANIZER Hospital Encounter [address] [address] Hadley Spear, DO High risk medications (not anticoagulants) long-term use (Primary Dx); Family history of colon cancer in father; History of colonic polyps; Ulcerative colitis, chronic, unspecified complication (HCC); Ulcerative pancolitis without complication (CMS/HCC) (HCC) Discharge Disposition: Discharge to home or self care from Last 3 Months Surgical History Surgery Date Site/Laterality Comments SKIN CANCER EXCISION COLONOSCOPY probably 5 years ago COLONOSCOPY 01/27/2024 Medical History Medical History Date Comments Ulcerative colitis (HCC) Skin cancer Adenomatous colon polyp HLD (hyperlipidemia) GERD (gastroesophageal reflux disease) Clostridioides difficile infection Family History Medical History Relation Name Comments Colon cancer Father Hypertension Father Cancer Mother Relation Name Status Comments Father Mother Social History Tobacco Use Types Packs/Day Years [...] on file Legal Sex Male 7:35 AM CLOSET ORGANIZER Gender Identity Not on file Sexual Orientation Not on file Obstetrics History Last Filed Vital Signs Vital Sign Reading Time Taken Comments Blood Pressure 149/106 01/27/2024 11:50 AM CLOSET ORGANIZER BP was elevated preop, pt stated has not taken his bp med today, will take when he gets home. Pulse 72 01/27/2024 11:50 AM CLOSET ORGANIZER Temperature 36.6 ??C (97.8 ??F) 01/27/2024 1 1:50 AM CLOSET ORGANIZER Respiratory Rate 18 01/27/2024 11:5 0 AM CLOSET ORGANIZER Oxygen Saturation 96% 01/27/2024 11: 50 AM CLOSET ORGANIZER Inhaled Oxygen Concentration - - Weight 106.6 kg (235 lb) 01/27/2024 9:3 3 AM CLOSET ORGANIZER Height 182.9 cm (6') 01/27/2024 9:33 AM CLOSET ORGANIZER Body Mass Index 31.87 01/27/2024 9:33 AM CLOSET ORGANIZER Plan of Treatment Health Maintenance Due Date Last Done Comments Depression Screening 1970 Hepatitis C Screening 1970 Prostate Cancer Screening-PSA 1970 Pneumococcal vaccine <65 (1 of 2 - PCV) 1977 Hepatitis B Screening 1989 Regular Well Visit/Exam 18-64 1989 Zoster Vaccine (1 of 2) 1990 Influenza Vaccine (#1) 2023 DTaP/Tdap/Td Vaccine (5 - Td or Tdap) 10/07/2026 10/07/2016, 09/25/2005, 02/10/2005, Additional history exists Colon Cancer Screening-Colonoscopy 01/26/20342023 Procedures Procedure Name Priority Date/Time Associated Diagnosis Comments SURGICAL PATHOLOGY STAT 01/27/2024 1: 38 PM CLOSET ORGANIZER Family history of colon cancer in father History of colonic polyps Ulcerative colitis, chronic, unspecified complication (HCC) COLON BIOPSY 01/27/2024 10:33 AM CLOSET ORGANIZER Family history of colon cancer in father History of colonic polyps Ulcerative colitis, chronic, unspecified complication (HCC) COLONOSCOPY 01/27/2024 9:34 AM CLOSET ORGANIZER from Last 3 Months Results * Surgical pathology (01/27/2024 1:38 PM CLOSET ORGANIZER) Tissue (Colon, Biopsy) 01/27/2024 11:15 AM CLOSET ORGANIZER Comment:Colon biopsy to rule out dysplasia Tissue (Colon, Biopsy) 01/27/2024 11:15 AM CLOSET ORGANIZER Comment:Colon biopsy to rule out dysplasia Tissue (Colon, Biopsy) 01/27/2024 11:16 AM CLOSET ORGANIZER Comment:Colon biopsy to rule out dysplasia Narrative PATHOLOGY [facility] - 01/28/2024 4:10 PM CLOSET ORGANIZER [facility] results best viewed via link to PDF [facility] Department of Pathology [address] [place] [address] Note to Patients: This report may contain [...] Final Report Patient Name: ??EMILIANO MCGOVERN Address: ??[address], ??[place], [place] ??[address]- Gender: ??M : ??1970 (Age: 53) Service: ??Gastro Location: ??[facility] Hospital #: ??[id number] Patient Type: ??[facility] Accession # ?[id number] Taken: ??01/27/2024 Received: ??01/27/2024 Accessioned: ??01/27/2024 Reported: [...] submitted in three formalin containers labeled EMILIANO MCGOVERN . A. ??The first container is labeled [...] and 3 mm. All in C. T.A. Chepe, R.N., P.A./Jax Gaxiola M.D. REPORT IMAGES AND SCANNED DOCUMENTS, IF INCLUDED, ONLY VIEWABLE IN PDF VERSION OF REPORT The performance characteristics of some immunohistochemical stains, fluorescence in-situ hybridization tests and immunophenotyping by flow cytometry cited in this report (if any) were determined by the Surgical Pathology Department at [facility] as part of an ongoing quality assurance tech program and in compliance with federally mandated [...] characteristics determined by the Surgical Pathology Department [facility]. ??It has not been cleared or approved by the U. S. Food and Drug Administration. Note for decalcified specimens: This assay has not been validated on decalcified tissues. Results should be interpreted with caution given the possibility of false negativity on decalcified specimens Hadley Spear DO LAB PATHOLOGY ORDERABLES Final Result Performing Organization Address City/State/[facility] Co de Phone Number PATHOLOGY [facility] [address] [place], [place] [id number] * Colonoscopy (01/27/2024 9:34 AM CLOSET ORGANIZER) Anatomical Region Laterality Modality Other Narrative Procedure Note Hadley Spear, - 01/27/2024 9:34 AM CST [facility] Patient Name: Emiliano Mcgovern Procedure Date: 01/27/2024 9:34 AM Date of : 1970 Admit Type: Outpatient Age: 53 Gender: Male Attending MD: Hadley Spear D.O. Room: [facility] ENDOSCOPY ROOM 2 Note Status: Finalized Patient [...] Last colonoscopy 5 years ago Referring MD: Mariluz Salcedo, ANP Providers: Hadley Spear D.O. Impression: - The [...] passed under direct vision. The Pediatric Colonoscope [id number] was introduced through the anus and advanced [...] 9:34 AM Procedure Code(s): --- Professional --- 95686, Colonoscopy, flexible; with biopsy, single or multiple --- Technical --- 64745, Colonoscopy, flexible; with biopsy, single or multiple [...] neoplasm of digestive organs CPT copyright 2020 [employer]. All rights reserved. The codes documented in this report are preliminary and upon stone grader reviewmay be revised to meet current compliance requirements. Recognized by the [employer] for promoting quality in endoscopy Hadley TigreFernando Gongoracolton DO ENDOSCOPY PROCEDURES Final Res ult from Last 3 Months Additional Health Concerns Infection Onset Date Last Indicated C. difficile Comment:timothy 09/02/2006 09/02/2006 Insurance [facility] CHO[facility] PLUS [facility] CHO[facility] PLUS [facility] HMO Advance Directives For more information, please contact: [phone] * Full Code (Latest Code Status on File) Date Activated Date Inactivated Comments 01/27/2024 9:28 AM 01/27/2024 4:08 PM * Full Code Date Activated Date Inactivated Comments 01/27/2024 9:28 AM 01/27/2024 9:28 AM * Full Code Date Activated Date Inactivated Comments 02/23/2019 11:38 PM 02/24/2019 4:33 PM Care Teams Mica Miner Blasting Relationship Specialty Start Date End Date Mariluz Salcedo NP [address] [place] [address] PCP - General Internal Medicine 11/05/23
[2024-03-11 16:05] LABS: Add Urine Microscopic? YES; Appearance Urine Clear (Clear); Bacteria Urine None Seen /hpf; Bilirubin Urine 1+ (Negative); Blood Urine Negative (Negative); Color Urine Dark Yellow (Yellow); Glucose Urine UA Negative (Negative); Ketones Urine Trace mg/dL (Negative); Leukocyte Esterase Ur Negative LEU/UL (Negative); Nitrate Urine Negative (Negative); Non Pathogenic Casts 0-2; Protein Urine Trace mg/dL (Negative); RBC Urine 0-2 /hpf (0-2); Specific Grav Ur 1.028 (1.001-1.035); Squamous Epithelial Cell Urine None Seen /hpf (Few); Urobilinogen Urine 0.2 mg/dL (<2.0); WBC Urine 0-5 /hpf (0-3); pH Urine 6.5 (5.0-9.0)
[2024-03-11 16:15] LABS: Basophils Absolute Auto 0.1 K/mm3 (0.0-0.1); Basophils Percent Auto 1.1 % (0.2-1.2); Eosinophils Absolute Auto 0.3 K/mm3 (0-0.3); Eosinophils Percent Auto 3.7 % (0-4.4); Hematocrit 47.3 % (42.0-52.0); Hemoglobin 15.5 g/dL (14.0-18.0); Immature Granulocyte Absolute 0.04 K/mm3 (0.00-0.031); Immature Granulocyte Percent A 0.5 % (0-0.5); Lymphocytes Absolute Auto 2.08 K/mm3 (0.9-3.2); Lymphocytes Percent Auto 28.3 % (18.3-44.2); Mean Corpuscular HGB Conc 32.8 g/dl (32-36); Mean Corpuscular Hemoglobin 29.5 pg (26-34); Mean Corpuscular Volume 90.1 fl (80-100); Monocytes Absolute Auto 0.6 K/mm3 (0.1-0.6); Monocytes Percent Auto 8.4 % (2.6-8.5); Neutrophils Absolute Auto 4.3 K/mm3 (1.3-6.7); Platelet Count Result 265 k/mm3 (150-375); Red Blood Count 5.25 M/mm3 (4.6-6.20); Red Cell Distribution Width 13.1 % (11.5-14.5); White Blood Count 7.4 K/mm3 (4.5-10.0)
[2024-03-11 16:55] LABS: Erythrocyte Sedimentation Rate 4 mm/hr (0-20)
[2024-03-11 17:05] LABS: Alanine Aminotransferase 76 U/L (6-50); Albumin Level 4.7 g/dL (3.5-5.1); Alkaline Phosphatase 77 U/L (38-126); Anion Gap 12 mmol/L (4-12); Aspartate Amino Transferase 51 U/L (17-59); Bilirubin,Total 0.9 mg/dL (0.2-1.3); Blood Urea Nitrogen 15 mg/dL (9-20); CRP < 0.5 mg/dL (<1.0); Calcium 10.3 mg/dL (8.4-10.2); Carbon Dioxide 25 mmol/L (22-30); Chloride 104 mmol/L (98-107); Estimated Glomerular Filt Rate > 60; Glucose 130 mg/dL (65-110); Potassium 4.4 mmol/L (3.4-5.0); Sodium 141 mmol/L (137-145); Uric Acid 5.6 mg/dL (3.5-8.5)
[2024-03-11 17:07] LABS: Rheumatoid Factor < 12.0 IU/ML (<12)
[2024-03-11 17:18] LABS: Hepatitis B Surface Antigen Negative (Negative)
[2024-03-11 17:24] LABS: HAV RESULT Negative (Negative); Hepatitis B Core IgM Result Negative (Negative)
[2024-03-11 17:35] LABS: Hepatitis B Surface Anti Res Negative; Hepatitis C Virus Antibody Negative (Negative)
[2024-03-13 13:07] LABS: NIL 0.02 IU/mL; Quantiferon TB Plus, 1T NEGATIVE (NEGATIVE)
[2024-03-16 11:59] LABS: Anti Nuclear Antibody Pattern Nuclear, Homogeneous; Anti Nuclear Antibody Titer 1:40 titer
[2024-03-16 15:03] LABS: Cyclic Citrullinated Peptide <16 UNITS
== END 2024-03-11 10:49 | disposition home or self-care (01) ==
LOC: ANHGOSHLAB 10:50
PROVIDERS: PCP Nurse Practitioner; Visit Provider Internal Medicine
DX: M07.60 Enteropathic arthropathies, unspecified site (principal)
CPT/HCPCS: 36415; 80053; 80074; 81001; 84443; 84550; 85025; 85652; 86038; 86039; 86140; 86200; 86430; 86480; 86706

== ENCOUNTER 2024-03-11 11:15 | Outpatient (CLI) | payer OTHER, SELFPAY ==
--- NOTE | ~2024-03-11 | XR_ITS ---
EXAMINATION: XR hand RT 2V, XR hand LT 2V DATE: 03/11/2024 11:54 INDICATION: Intrahepatic arthropathy TECHNIQUE: 1. Posteroanterior and lateral views of the right hand were obtained. 2. Posteroanterior and lateral views of the left hand were obtained. COMPARISON: None. FINDINGS: Normal alignment at the bilateral hands and wrists. No fractures. Symmetric pattern of minimal to mil d polyarticular osteoarthritis at the bilateral hands including at the first and second metacarpophal angeal joints, the first interphalangeal joints and multiple bilateral interphalangeal joints with di stal predominance. No erosions to suggest inflammatory arthritis. IMPRESSION: 1. Typical symmetric distribution of minimal to mild polyarticular osteoarthritis at several of the m etacarpophalangeal and interphalangeal joints in both hands. Reviewed, dictated and finalized at location B. PROCESSING CONTROL CLERK IMPRESSION: 1. Typical symmetric distribution of minimal to mild polyarticular osteoarthrit is at several of the metacarpophalangeal and interphalangeal joints in both dixon ds.
--- NOTE | ~2024-03-11 | XR_ITS ---
EXAM: XR lumbar spine min 4V, XR sacroiliac joints min 3V DATE: 03/11/2024 11:54 HISTORY: Enteropathic arthropathies, unspecified site . COMPARISON: None available. FINDINGS: 5 nonrib-bearing lumbar-type vertebral bodies. Pedicles intact. Minimal 2 mm retrolisthese s at L1 S2 and L2-3. Vertebral body heights preserved. Moderate disc space narrowing at L4-5. Mild di sc space narrowing at L3-4 and L5-S1. Small bridging anterior osteophyte at L3-4. No pars defect. Mil d multilevel facet sclerosis. No fracture or dislocation. Moderate degenerative changes in the bilate ral hips. Scattered pelvic enthesopathy. Normal SI joints. IMPRESSION: Minimal grade 1 retrolistheses at L1-2 and L2-3. Multilevel lumbar degenerative disc dise ase, moderate at L4-5. Multilevel mild lumbar facet arthropathy. Moderate bilateral hip osteoarthriti s. Normal SI joints. Reviewed, dictated and finalized at location K. EN TANK ERECTOR IMPRESSION: Minimal grade 1 retrolistheses at L1-2 and L2-3. Multilevel lumbar degenerative disc disease, moderate at L4-5. Multilevel mild lumbar facet arthr opathy. Moderate bilateral hip osteoarthritis. Normal SI joints.
== END 2024-03-11 11:16 | disposition home or self-care (01) ==
LOC: GOSHIMG 11:16
PROVIDERS: PCP Nurse Practitioner; Visit Provider Internal Medicine
DX: M43.16 Spondylolisthesis, lumbar region (principal); M51.369 Other intervertebral disc degeneration, lumbar region without mention of lumbar back pain or lower extremity pain; M47.816 Spondylosis without myelopathy or radiculopathy, lumbar region; M16.0 Bilateral primary osteoarthritis of hip; M25.542 Pain in joints of left hand; M25.541 Pain in joints of right hand; M07.60 Enteropathic arthropathies, unspecified site
CPT/HCPCS: 72110; 72202; 73120

== ENCOUNTER 2024-03-23 12:53 | Outpatient (CLI) | payer OTHER, SELFPAY ==
--- NOTE | ~2024-03-23 | MR_ITS ---
EXAMINATION: MR sacroiliac jts wo con DATE: 03/23/2024 13:33 INDICATION: Arthropathy TECHNIQUE: Magnetic resonance imaging (MRI) of the sacroiliac joints was performed without intravenou s contrast. Sequences included sagittal PD-weighted FS FSE, coronal oblique T2-weighted FS FSE, ivan nal oblique T1-weighted FSE, oblique axial T2-weighted FS FSE and oblique axial T1-weighted FSE. COMPARISON: None FINDINGS: Normal bone marrow signal throughout with no reactive edema, fracture or pathologic marrow replacing process. Mild osteoarthritis at the bilateral sacroiliac joints. No abnormal fluid signal along the j oint line or associated erosions to suggest inflammatory sacroiliitis. Annular fissure with small dis c protrusion at L4-L5 and tiny disc protrusion at L5-S1. Bladder and visualized sigmoid colon and rec lily are unremarkable. Prostatomegaly measuring 5.3 x 3.8 x 3.6 cm. No pathologically enlarged lymphad enopathy in the visualized posterior pelvis. IMPRESSION: 1. Mild bilateral sacroiliac osteoarthritis with no findings to suggest inflammatory sacroiliitis. 2. Prostatomegaly. 3. Mild lower lumbar spondylosis and annular fissures at L4-5 and L5-S1. Reviewed, dictated and finalized at location A. SUPPORT TECHNICIANS IMPRESSION: 1. Mild bilateral sacroiliac osteoarthritis with no findings to suggest inflamm atory sacroiliitis. 2. Prostatomegaly. 3. Mild lower lumbar spondylosis and annular fissures at L4-5 and L5-S1.
== END 2024-03-23 12:54 | disposition home or self-care (01) ==
LOC: GOSHIMG 12:54
PROVIDERS: PCP Nurse Practitioner; Visit Provider Internal Medicine
DX: M07.60 Enteropathic arthropathies, unspecified site (principal)
CPT/HCPCS: 72195

== ENCOUNTER 2024-09-03 12:54 | Outpatient (CLI) | payer OTHER, SELFPAY ==
--- OUTSIDE RECORDS SUMMARY | 2024-09-03 12:59 | XMS_ITS | Clinical Summary ---
Author Organization [facility] Address [address] [place] [address] Care Team Providers Care Bowling Floor Manager Name Role Phone Mariluz Salcedo APRN Primary Care Provider [phone] Social History Tobacco Use Types Packs/Day Years Used Date Smoking Tobacco: Never Assessed Sex and Gender Information Value Date Recorded Sex Assigned at Not on file Legal Sex Male 10:41 AM HEALTHCARE CONSULTING MANAGER Gender Identity Not on file Sexual Orientation Not on file Plan of Treatment Health Maintenance Due Date Last Done Comments Colorectal Cancer Screening Colonoscopy (10 Years) 1971 Annual Physical 1974 Hepatitis B Vaccines (1 of 3 - 19+ 3-dose series) 1990 Pneumococcal Vaccine: 50+ Years (1 of 1 - PCV) 2021 COVID-19 Vaccine (3 - 2023- season) 2023 03/31/2020, 03/02/2020 DTaP, Tdap and Td Vaccines (5 - [...] on patient's age to complete this topic Insurance [employer] Care Teams Bowling Floor Manager Relationship Specialty Start Date End Date Mariluz Salcedo APRN [address] [place] [address] PCP - General NURSE PRACTITIONER 01/28/24
--- OUTSIDE RECORDS SUMMARY | 2024-09-03 12:59 | XMS_ITS | Clinical Summary ---
Author Organization [facility] Address [address] [facility] [address] [place] [address] Phone Care Team Providers Care Machine Operator Picker Name Role Phone Unavailable Primary Care Provider [...] Comments Blood Pressure 129/96 04/08/2017 11:34 AM PHOTOGEOLOGIST Pulse 77 04/08/2017 10:07 AM PHOTOGEOLOGIST Temperature 36 C (96.8 F) 04/08/2017 11:34 AM PHOTOGEOLOGIST Respiratory Rate 14 04/08/2017 11:34 AM PHOTOGEOLOGIST Oxygen Saturation 93% 04/08/2017 11:34 AM PHOTOGEOLOGIST Inhaled Oxygen Concentration - - Weight 105.7 kg (233 lb) 04/08/2017 10:07 AM PHOTOGEOLOGIST Height 182.9 cm (6') 04/08/2017 10:07 AM PHOTOGEOLOGIST Body Mass Index 31.6 04/08/2017 10:07 AM PHOTOGEOLOGIST Plan of Treatment Health Maintenance Due Date Last Done Comments Hepatitis B Immunization (1 of 3 - 19+ 3-dose series) 1990 Zoster Immunization (1 of 2) 1990 Cologuard 02/09/2016 Immunochemical Fecal Occult Blood 02/09/2016 Colonoscopy 04/08/2018 04/08/2017, 12/04/2009 Colorectal Cancer Screening 04/08/2018 SARS-COV-2 Immunization (3 - Moderna risk series) 04/28/2020 03/31/2020, 03/02/2020 Pneumococcal Immunization (5 0+ years) (1 of 1 - PCV) 2021 Influenza Immunization (#1) 2024 Respiratory Syncytial Virus (RSV) Immunization (Adult) (1 - 1-dose 75+ series) 2046 DTaP/Tdap/Td Immunization Discontinued 2016, 09/25/2005, 06/11/1976 Hepatitis C Virus (HCV) Screening Completed 04/08/2017 Human Papillomavirus (HPV) Immunization Aged Out No longer eligible based on patient's age to complete this topic Meningococcal Immunization (ACWY) Aged Out No longer eligible based on patient's age to complete this topic Rotavirus Immunization Aged Out No lo nger eligible based on patient's age to complete this topic Procedures Procedure Name Priority Date/Time Associated Diagnosis Comments HEPATITIS PANEL ACUTE (AHP) Routine 04/08/2017 11:27 AM PHOTOGEOLOGIST HM COLONOSCOPY Routine 12/04/2009 from Last 3 Months or Most Recently Relevant to Health Maintenance Results * Hepatitis Panel Acute (AHP) (04/08/2017 11:27 AM PHOTOGEOLOGIST) HEPATITIS A IGM ANTIBODY NON DETECTED NON DETECTED 04/09/2017 2:03 AM PHOTOGEOLOGIST [facility] Comment: IGM Antibodies to HAV not detected. Does not exclude early acute or recovered HAV infection. HEP B CORE AB (IGM) NON DETECTED NON DETECTED 04/09/2017 2:03 AM PHOTOGEOLOGIST [facility] Comment: IGM anti-HBC not detected. Does not exclude the possibility of exposure to or infection with HBV. HEPATITIS B SURFACE ANTIGEN NON DETECTED NON DETECTED 04/09/2017 2:03 AM PHOTOGEOLOGIST [facility] Comment: A nonreactive test result does not [...] antibody 0.12 <1 S/CO 04/09/2017 2:03 AM [facility] Comment: Signal/Cutoff ratio < 0.79 is Nondetected Signal/Cutoff ratio 0.80-0.99 is Grayzone Signal/Cutoff ratio > 0.99 is Detected Supplemental assays are recommended if signal/cutoff ratio is >/=1.00. Signal/cutoff ratio result >/= 5.00 is 97% predictive of positivity for recombinant immunoblot assay (RIBA) and will be reported to the [place] [facility] as required. Blood specimen (specimen) Butterfly Puncture / Unknown 04/08/2017 11:27 AM PHOTOGEOLOGIST 04/08/2017 11:46 AM PHOTOGEOLOGIST us Hadley Spear DO HEMATOLOGY ORDERABLES Final Res ult [facility] [address] [place] [address], [place] * COLONOSCOPY (12/04/2009) us Guru Huggins MD PROCEDURE/MINOR SURGICAL ORDERABLES Final Result from Last 3 Months or Most Recently Relevant to Health Maintenance
--- OUTSIDE RECORDS SUMMARY | 2024-09-03 12:59 | XMS_ITS | Clinical Summary ---
Author Organization [facility] Address [address] [place] [address] Care Team Providers Care Archives Director Name Role Phone Mariluz Salcedo NP Primary Care Provider [phone] Allergies No known active allergies Medications azaTHIOprine (IMURAN) 50 mg tablet TAKE THREE TABLETS BY MOUTH ONCE DAILY 06/01/2018 Active folic acid (FOLVITE) 1 mg tablet Take 1 tab by mouth once daily Active omeprazole (PriLOSEC) 20 mg capsule Take 1 capsule (20 mg total) by mouth daily 04/29/2018 Active turmeric, bulk, 100 % powder 2 times daily Act prasanth sulfaSALAzine (AZULFIDINE) 500 mg tablet Take 2 tablets (1,000 mg total) by mouth 4 times daily 04/07/2018 Active cholecalciferol (VITAMIN D-3) 2000 unit capsule Take 1 capsule (2,000 Units total) by mouth daily 30 capsule 02/15/2019 Active losartan (COZAAR) 25 mg tablet Take 1 tablet (25 mg total) by mouth daily Active budesonide EC (ENTOCORT EC) 3 mg 24 hr capsule TAKE 3 CAPSULES BY MOUTH EVERY MORNING 270 capsule 1 02/23/2024 Active Active Problems Problem Noted Date Diagnosed Date Family history of colon cancer in father 024 History of colonic polyps 11/24/2023 Ulcerative colitis, chronic, unspecified complic ation 11/24/[address] scan of lung 02/24/2019 Arthritis of left acromioclavicular joint 2019 Overview (02/16/2019): Added automatically from request for surgery [id number] Ulcerative colitis 06/19/2011 Assessment & Plan (02/24/2019 10:17 AM BRACER): Stable on current home meds Resolved Problems Problem Noted Date Diagnosed Date Resolved Date Chest pain 02/24/2019 05/16/2019 Assessment & Plan (02/24/2019 10:20 AM BRACER): Atypical, serial enzymes Other headache syndrome 02/24/2019 04/0 06/2019 Biceps tendonitis on left 02/16/2019 Overview (02/16/2019): Added automatically from request for surgery [id number] Nontraumatic rotator cuff tear, left 02/16/2019 05/16/2019 Overview (02/16/2019): Added automatically from request for surgery [id number] Impingement syndrome of left shoulder 02/16/2019 05/16/2019 Overview (02/16/2019): Added automatically from request for surgery [id number] Surgical History Surgery Date Site/Laterality Comments SKIN [...] on file Legal Sex Male 7:35 AM BRACER Gender Identity Not on file Sexual Orientation Not on file Obstetrics History Last Filed Vital Signs Vital Sign Reading Time Taken Comments Blood Pressure 149/106 01/27/2024 11:50 AM BRACER BP was elevated preop, pt stated has not taken his bp med today, will take when he gets home. Pulse 72 01/27/2024 11:50 AM BRACER Temperature 36.6 C (97.8 F) 01/27/2024 11:50 AM BRACER Respiratory Rate 18 01/27/2024 11:5 0 AM BRACER Oxygen Saturation 96% 01/27/2024 11: 50 AM BRACER Inhaled Oxygen Concentration - - Weight 106.6 kg (235 lb) 01/27/2024 9:3 3 AM BRACER Height 182.9 cm (6') 01/27/2024 9:33 AM BRACER Body Mass Index 31.87 01/27/2024 9:33 AM BRACER Plan of Treatment Health Maintenance Due Date Last Done Comments Depression Screening 1971 Hepatitis C Screening 1971 Prostate Cancer Screening-PSA 1971 Hepatitis B Screening 1989 Regular Well Visit/Exam 18-64 1989 Pneumococcal vaccine <65 (1 of 2 - PCV) 1990 Zoster Vaccine (1 of 2) 1990 Influenza Vaccine (#1) 2024 DTaP/Tdap/Td Vaccine (5 - Td or Tdap) 10/07/2026 10/07/2016, 09/25/2005, 02/10/2005, Additional history exists Colon Cancer Screening-Colonoscopy 01/26/20342023 Procedures Procedure Name Priority Date/Time Associated Diagnosis Comments COLONOSCOPY 01/27/2024 9:34 AM BRACER from Last 3 Months or Most Recently Relevant to Health Maintenance Results * Colonoscopy (01/27/2024 9:34 AM BRACER) Anatomical Region Laterality Modality Other Narrative Procedure Note Hadley Spear, DO - 01/27/2024 9:34 AM CST [facility] Patient Name: Elvin Mcgovern Procedure Date: 01/27/2024 9:34 AM Date of : 1970 Admit Type: Outpatient Age: 53 Gender: Male Attending MD: Hadley Spear D.O. Room: [facility] ENDOSCOPY ROOM 2 Note Status: Finalized Patient [...] passed under direct vision. The Pediatric Colonoscope [id number] was introduced through the anus and advanced [...] 9:34 AM Procedure Code(s): --- Professional --- 65196, Colonoscopy, flexible; with biopsy, single or multiple --- Technical --- 52362, Colonoscopy, flexible; with biopsy, single or multiple [...] neoplasm of digestive organs CPT copyright 2020 [employer]. All rights reserved. The codes documented in this report are preliminary and upon laundry press operator reviewmay be revised to meet current compliance requirements. Recognized by the [place] [employer] for promoting quality in endoscopy Hadley Spear DO ENDOSCOPY PROCEDURES Final Res ult from Last 3 Months or Most Recently Relevant to Health Maintenance Additional Health Concerns Infection Onset Date Last Indicated C. difficile Comment:timothy 09/02/2006 09/02/2006 Insurance [facility] Address: [facility] [address] [place] [address] [facility] Address: [address] [address] [place] [address] [facility] HMO [facility] HMO/PPO Address: [facility] [address] [place] [address] Advance Directives For more information, please contact: [phone] * Full Code (Latest Code Status on File) Date Activated Date Inactivated Comments 01/27/2024 9:28 AM 01/27/2024 4:08 PM * Full Code Date Activated Date Inactivated Comments 01/27/2024 9:28 AM 01/27/2024 9:28 AM * Full Code Date Activated Date Inactivated Comments 02/23/2019 11:38 PM 02/24/2019 4:33 PM Care Teams Archives Director Relationship Specialty Start Date End Date Mariluz Salcedo NP [address] [place] [address] PCP - General Internal Medicine 11/05/23
--- OUTSIDE RECORDS SUMMARY | 2024-09-03 12:59 | XMS_ITS | Referral Summary ---
Author Organization [facility] Address [address] [place] [address] Care Team Providers Care Assistant Professor Of Surgery Name Role Phone Mariluz Salcedo NP Primary Care Provider [phone] Allergies No known active allergies Medications azaTHIOprine [...] (02/16/2019): Added automatically from request for surgery [id number] Ulcerative colitis 06/19/2011 Assessment & Plan (02/24/2019 10:17 AM GRAIN INSPECTOR): Stable on current home meds Resolved Problems Problem Noted Date Diagnosed Date Resolved Date Chest pain 02/24/2019 05/16/2019 Assessment & Plan (02/24/2019 10:20 AM GRAIN INSPECTOR): Atypical, serial enzymes Other headache syndrome 02/24/2019 04/0 06/2019 Biceps tendonitis on left 02/16/2019 Overview (02/16/2019): Added automatically from request for surgery [id number] Nontraumatic rotator cuff tear, left 02/16/2019 05/16/2019 Overview (02/16/2019): Added automatically from request for surgery [id number] Impingement syndrome of left shoulder 02/16/2019 05/16/2019 Overview (02/16/2019): Added automatically from request for surgery [id number] Social History Tobacco Use Types Packs/Day Years [...] on file Legal Sex Male 7:35 AM GRAIN INSPECTOR Gender Identity Not on file Sexual Orientation Not on file Last Filed Vital Signs Vital Sign Reading Time Taken Comments Blood Pressure 149/106 01/27/2024 11:50 AM GRAIN INSPECTOR BP was elevated preop, pt stated has not taken his bp med today, will take when he gets home. Pulse 72 01/27/2024 11:50 AM GRAIN INSPECTOR Temperature 36.6 C (97.8 F) 01/27/2024 11:50 AM GRAIN INSPECTOR Respiratory Rate 18 01/27/2024 11:5 0 AM GRAIN INSPECTOR Oxygen Saturation 96% 01/27/2024 11: 50 AM GRAIN INSPECTOR Inhaled Oxygen Concentration - - Weight 106.6 kg (235 lb) 01/27/2024 9:3 3 AM GRAIN INSPECTOR Height 182.9 cm (6') 01/27/2024 9:33 AM GRAIN INSPECTOR Body Mass Index 31.87 01/27/2024 9:33 AM GRAIN INSPECTOR Plan of Treatment Not on file Procedures Procedure Name Priority Date/Time Associated Diagnosis Comments COLONOSCOPY 01/27/2024 9:34 AM GRAIN INSPECTOR from Last 3 Months or Most Recently Relevant to Health Maintenance Results * Colonoscopy (01/27/2024 9:34 AM GRAIN INSPECTOR) Anatomical Region Laterality Modality Other Narrative Procedure Note Hadley Spear, - 01/27/2024 9:34 AM CST [facility] Patient Name: Elvin Mcgovern Procedure Date: 01/27/2024 9:34 AM Date of : 1970 Admit Type: Outpatient Age: 53 Gender: Male Attending MD: Hadley Spear D.O. [facility] 2 Note Status: Finalized Patient [...] colonoscopy 5 years ago Referring MD: Mariluz Salcedo ANP Providers: Hadley Spear D.O. Impression: - [...] passed under direct vision. The Pediatric Colonoscope [id number] was introduced through the anus and advanced [...] 9:34 AM Procedure Code(s): --- Professional --- 49331, Colonoscopy, flexible; with biopsy, single or multiple --- Technical --- 39844, Colonoscopy, flexible; with biopsy, single or multiple [...] neoplasm of digestive organs CPT copyright 2020 [employer]. All rights reserved. The codes documented in this report are preliminary and upon space systems operations manager reviewmay be revised to meet current compliance requirements. Recognized by the [place] for promoting quality in endoscopy Hadley Spear DO ENDOSCOPY PROCEDURES Final Res ult from Last 3 Months or Most Recently Relevant to Health Maintenance Additional Health Concerns Infection Onset Date Last Indicated C. difficile Comment:timothy 09/02/2006 09/02/2006 Insurance [facility] H[facility] Advance Directives For more information, please contact: [phone] * Full Code (Latest Code Status on File) Date Activated Date Inactivated Comments 01/27/2024 9:28 AM 01/27/2024 4:08 PM * Full Code Date Activated Date Inactivated Comments 01/27/2024 9:28 AM 01/27/2024 9:28 AM * Full Code Date Activated Date Inactivated Comments 02/23/2019 11:38 PM 02/24/2019 4:33 PM Care Teams Assistant Professor Of Surgery Relationship Specialty Start Date End Date Mariluz Salcedo NP [address] [place] [address] PCP - General Internal Medicine 11/05/23
--- OUTSIDE RECORDS SUMMARY | 2024-09-03 12:59 | XMS_ITS | Patient Health Record ---
Author Organization [employer] Address [address] [place] [address] Care Team Providers Care Rn Clinician Name Role Phone Miri Davis Unavailable [phone] Allergies No Known Allergies Results Component Value Reference Range Notes OVA AND PARASITES WITH GIARD IA ANTIGEN Reviewed date:09/25/2023 10:39:22 AM Interpretation: Performing Lab:[place], [facility]Saint [facility] [id number] [place] [id number] [place] [address] Notes/Report: SPLIT 09/16/2023 FROM [id number] GIARDIA AG, EIA, STOOL SEE NOTE GIARDIA AG, EIA, STOOL Micro Number: [id number] Test Status: Final Specimen Source: Stool Specimen Quality: Adequate Giardia Result 1: Not Detected Reference Range: Not Detected NOTE: Due to intermittent shedding, one negative sample does not necessarily rule out the presence of a parasitic infection. OVA AND PARASITES, CONC AND PERM SMEAR SEE NOTE OVA AND PARASITES, CONC AND PERM SMEAR Micro Number: [id number] Test Status: Final Specimen Source: Stool Specimen [...] infection. For additional information, please refer to [email or web address]/[email or web address] (This link is being provided for informational/ educational purposes only.) VALERIE/SHIG/CAMPY, CULTURE AND SHIGA TOXIN, EIA W/RFL TO E.COLI 0157 CULT Reviewed date:09/25/2023 10:39:22 AM Interpretation: Performing Lab:Ashli VARELASaint John'S HospitalOrwoe[address] [facility] [address] [facility] HospitalMuhugiyKM[address] BonitaCarolyn Reinoso Notes/Report: SPLIT 09/16/2023 FROM CAMPYLOBACTER SPP. AG,EIA SEE NOTE CAMPYLOBACTER SPP. AG,EIA Micro Number: [id number] Test Status: Final Specimen Source: Stool Specimen Quality: Adequate Campy Ag Result: Not Detected Reference Range: Not Detected SHIGA TOXINS, EIA W/RFL TO E.COLI O157 CULTURE SEE NOTE SHIGA TOXINS, EIA W/RFL TO E.COLI O157 CULTURE Micro Number: [id number] Test Status: Final Specimen Source: Stool Specimen Quality: Adequate Shiga Toxin: Not Detected Reference Range: Not Detected SALMONELLA AND SHIGELLA, CULTURE SEE NOTE SALMONELLA AND SHIGELLA, CULTURE Micro Number: [id number] Test Status: Final Specimen Source: Stool Specimen Quality: Adequate Result: No Salmonella or Shigella isolated FECAL FAT, QUALITATIVE Reviewed date:09/21/2023 09:44:23 PM Interpretation: Performing Lab:Ashli OCONNELL/Linda ClaireRingle [id number] [facility] centereric Smith, VhqrkuwleRF[address] Dakotah Roth M.D.,PhD Notes/Report: SPLIT 09/16/2023 FROM FECAL FAT, QUALITATIVE Normal Normal LACTOFERRIN, QN, STOOL Reviewed date:09/25/2023 10:39:22 AM Interpretation: Performing Lab:Ashli PULLIAM/Linda [facility],[address] [facility] SystemCA[address] Micheline Rojas MD,PhD,MAIRA Notes/Report: SPLIT 09/16/2023 FROM LACTOFERRIN, QN, STOOL >1000.00 <7.25 mcg/mL The following patient samples should be excluded from use in the test: patients with a history of HIV and/or have hepatitis B or C, patients with a history of infectious diarrhea (within 6 months), and patients having had a colostomy and or ileostomy within 1 month. CMP: COMPLETE METABOLIC PANE L Reviewed date:09/18/2023 10:34:50 AM Interpretation: Performing Lab:[place], [facility]-[id number] Lori [facility], [id number] Giuliano Wheeler MD Notes/Report: NON-FASTING; NON-FASTING; NON-FASTING; NON-FASTING PATIENT UNABLE TO VOID; ADVISED TO RETURN FOR COLLECTION. GLUCOSE 128 65-99 mg/dL value >125 mg/dL indicates that they may have diabetes and this should be confirmed with a follow-up test. Fasting reference interval For someone without known diabetes, a glucose UREA NITROGEN (BUN) 18 7-25 mg/dL CREATININE [...] 17 10-35 U/L ALT 36 9-46 U/L CBC With Differential/Platel et Reviewed date:09/18/2023 10:34:50 AM Interpretation: Performing Lab:DUTCH [facility]-[id number] Lori [facility], GcluweHG[address] Giuliano Wheeler MD Notes/Report: NON-FASTING; NON-FASTING; NON-FASTING; [...] MPV 10.7 7.5-12.5 fL ABSOLUTE NEUTROPHILS 4150 5200-6005 cells/uL ABSOLUTE LYMPHOCYTES 2241 850-3900 cells/uL ABSOLUTE MONOCYTES 816 200-950 cells/uL ABSOLUTE EOSINOPHILS 393 15-500 cells/uL ABSOLUTE BASOPHILS 100 0-200 cells/uL NEUTROPHILS 53.9 LYMPHOCYTES 29.1 MONOCYTES 10.6 EOSINOPHILS 5.1 BASOPHILS 1.3 CRP Reviewed date:09/18/2023 10:34:50 AM Interpretation: Performing Lab:KS, [facility]-[id number] Lori Cisneros, QqogchAY[address] Giuliano Wheeler MD Notes/Report: NON-FASTING; NON-FASTING; NON-FASTING; NON-FASTING PATIENT UNABLE TO VOID; ADVISED TO RETURN FOR COLLECTION. C-REACTIVE PROTEIN 16.1 <8.0 mg/L APS Stool DX - no longer usi ng 03/27/23cb Reviewed date:10/05/2023 05:14:10 PM Interpretation: Performing Lab: Notes/Report: DIAGNOSES GROSSING DESCRIPTION MICROSCOPIC DESCRIPTION Complete 100 microscopic examination is performed. The findings are included in the diagnosis rendered. Textual Pathology Report SEE NOTES Reason For Referral No Information Medications Medication SIG (Take, Route, Fr equency, Duration) Notes Start Date End Date Status sulfaSALAzine 500 MG 4 tablets Orally ev coni 12 hours for 90 days Active Omeprazole 20 MG TAKE 1 CAPSULE BY [facility] EVERY DAY 30 MINUTES BEFORE MORNING MEAL [...] Problem Status W/U Status Risk Notes Problem 880137971 Family history of colon cancer (Z80.0) Active confirmed He has a family history of colon cancer in his father. Problem 63772723 Ulcerative colitis (K51.90) Active confirmed He was diagnosed with ulcerative colitis in the early . His symptoms have been controlled with sulfasalazine 500 mg 4 tablets twice a day. His bowel movements have been normal, soft, and formed. Lacks alarming features of mucus or blood in his stool, abdominal pain or cramping. Problem 705802235 History of colon polyps (Z86.010) Active confirmed His last colonoscopy was in 2018, and he was noted to have 1 polyp. At time of visit report is not available to review. Problem 152034271 Long-term use of high-risk medication (Z79.899) Active confirmed Problem 913975274 Acid reflux (K21.9) Active confirmed His reflux symptoms are controlled with omeprazole 20 mg as needed. He denies having any nausea, vomiting, or reflux. Problem 446886463 Malabsorption (K90.9) Active confirmed He has had a low vitamin D level in the past. He is not currently on oral vitamin D Encounters Encounter Location Date Provider Diagnosis [facility], [address] [place] [address] 09/11/2023 Miri Davis Ulcerative [facility] K51.90 and [facility] [place] [address] 09/18/2023 [facility] [place] [address] 09/25/2023 Miri Davis [address] [place] [address] 10/05/2023 Miri Davis Assessments Encounter Date Diagnosis (ICD Code) Assessment Notes Treatment Notes Treatment Clinical Notes Section Notes 09/11/2023 Ulcerative colitis (ICD-10 - K51.90) 09/18/2023 Diarrhea (ICD-10 - R19.7) 09/11/2023 Diarrhea (ICD-10 - R19.7) Plan Of Treatment Pending Test Test Name Order Date Colonoscopy 06/04/2021 Colonoscopy 05/27/2023 VITAMIN D,25-OH,TOTAL,IA 08/26/2023 Hepatic Function 07/16/2021 APS Target PCR Panel 09/18/2023 Insurance Providers Payer Name Payer Address Payer Phone Subscriber Number Group Number Insured Name Patient Relationship to Insured Coverage Start Date Coverage End Date [employer] Choice Pos II E2 [address] [place] [address] [id number] 2 [employer] M[employer] Spouse - patient is the spouse of the insured Medical (General) History Medical History History ICD Code GERD Ulcerative Colitis Colon Polyps Skin Cancer Surgical History Surgery Date(Month/Year) Colonoscopy 2018 Skin Cancer Removal [place] Teeth Extraction Hospitalization History Reason Date(Month/Year) Ulcerative Colitis
[2024-09-03 19:13] LABS: Hematocrit 46.8 % (42.0-52.0); Hemoglobin 15.4 g/dL (14.0-18.0); Immature Granulocyte Percent A 0.6 % (0-0.5); Lymphocytes Absolute Auto 2.58 K/mm3 (0.9-3.2); Mean Corpuscular HGB Conc 32.9 g/dl (32-36); Mean Corpuscular Hemoglobin 29.2 pg (26-34); Mean Corpuscular Volume 88.8 fl (80-100); Nucleated Red Blood Cells Absolute Auto 0.000 K/mm3 (0.0-0.012); Nucleated Red Blood Cells Perc 0.0 % (0.0-0.2); Platelet Count Result 323 k/mm3 (150-375); Red Blood Count 5.27 M/mm3 (4.6-6.20); White Blood Count 9.8 K/mm3 (4.5-10.0)
[2024-09-03 19:18] LABS: Alanine Aminotransferase 88 U/L (6-50); Albumin Level 5.1 g/dL (3.5-5.1); Alkaline Phosphatase 83 U/L (38-126); Anion Gap 12 mmol/L (4-12); Aspartate Amino Transferase 50 U/L (17-59); Bilirubin,Total 1.0 mg/dL (0.2-1.3); Blood Urea Nitrogen 19 mg/dL (9-20); Calcium 10.7 mg/dL (8.4-10.2); Carbon Dioxide 23 mmol/L (22-30); Chloride 103 mmol/L (98-107); Cholesterol 243 mg/dL (0-200); Estimated Glomerular Filt Rate 51; Glucose 171 mg/dL (65-110); HDL Direct 46 mg/dL; Potassium 4.0 mmol/L (3.4-5.0); Sodium 138 mmol/L (137-145); Total Protein 8.4 g/dL (6.3-8.2); Triglycerides 164 mg/dL (<150)
[2024-09-03 19:53] LABS: Prostate Specific Antigen 3.6 ng/mL (< OR = 4.0)
== END 2024-09-03 12:55 | disposition home or self-care (01) ==
LOC: ANHGOSHLAB 12:55
PROVIDERS: PCP Nurse Practitioner; Visit Provider Nurse Practitioner
DX: Z12.5 Encounter for screening for malignant neoplasm of prostate (principal); I10 Essential (primary) hypertension
CPT/HCPCS: 36415; 80053; 80061; 84153; 85025; G0103

== ENCOUNTER 2024-09-15 12:31 | Outpatient (CLI) | payer OTHER, SELFPAY ==
--- OUTSIDE RECORDS SUMMARY | 2024-09-15 12:35 | XMS_ITS | Clinical Summary ---
Author Organization [facility] Address [address] [facility] [address] [facility] [address] [place] [address] Phone Care Team Providers Care Road Hogger Operator Name Role Phone Unavailable Primary Care Provider [...] Comments Blood Pressure 129/96 04/08/2017 11:34 AM TRASHMAN Pulse 77 04/08/2017 10:07 AM TRASHMAN Temperature 36 C (96.8 F) 04/08/2017 11:34 AM TRASHMAN Respiratory Rate 14 04/08/2017 11:34 AM TRASHMAN Oxygen Saturation 93% 04/08/2017 11:34 AM TRASHMAN Inhaled Oxygen Concentration - - Weight 105.7 kg (233 lb) 04/08/2017 10:07 AM TRASHMAN Height 182.9 cm (6') 04/08/2017 10:07 AM TRASHMAN Body Mass Index 31.6 04/08/2017 10:07 AM TRASHMAN Plan of Treatment Health Maintenance Due Date [...] PANEL ACUTE (AHP) Routine 04/08/2017 11:27 AM TRASHMAN HM COLONOSCOPY Routine 12/04/2009 from Last 3 Months or Most Recently Relevant to Health Maintenance Results * Hepatitis Panel Acute (AHP) (04/08/2017 11:27 AM TRASHMAN) HEPATITIS A IGM ANTIBODY NON DETECTED NON DETECTED 04/09/2017 2:03 AM TRASHMAN [facility] Comment: IGM Antibodies to HAV not detected. Does not exclude early acute or recovered HAV infection. HEP B CORE AB (IGM) NON DETECTED NON DETECTED 04/09/2017 2:03 AM TRASHMAN [facility] Comment: IGM anti-HBC not detected. Does not exclude the possibility of exposure to or infection with HBV. HEPATITIS B SURFACE ANTIGEN NON DETECTED NON DETECTED 04/09/2017 2:03 AM TRASHMAN [facility] Comment: A nonreactive test result [...] antibody 0.12 <1 S/CO 04/09/2017 2:03 AM [facility] Comment: Signal/Cutoff ratio < 0.79 is Nondetected Signal/Cutoff ratio 0.80-0.99 is Grayzone Signal/Cutoff ratio > 0.99 is Detected Supplemental assays are recommended if signal/cutoff ratio is >/=1.00. Signal/cutoff ratio result >/= 5.00 is 97% predictive of positivity for recombinant immunoblot assay (RIBA) and will be reported to the [place] Department of Public Health as required. Blood specimen (specimen) Butterfly Puncture / Unknown 04/08/2017 11:27 AM TRASHMAN 04/08/2017 11:46 AM TRASHMAN us Hadley Spear DO HEMATOLOGY ORDERABLES Final Res ult [facility] [address] [place] [address], [place] * COLONOSCOPY (12/04/2009) us Guru Huggins MD PROCEDURE/MINOR SURGICAL ORDERABLES Final Result from Last 3 Months or Most Recently Relevant to Health Maintenance
--- OUTSIDE RECORDS SUMMARY | 2024-09-15 12:35 | XMS_ITS | Patient Health Record ---
Author Organization [employer] Address [address] [facility] [address] [place] [place] [address] Care Team Providers Care Client Services Analyst Name Role Phone Miri Davis Unavailable [phone] Allergies No Known Allergies Results Component Value Reference Range Notes APS Stool DX - no longer usi [...] Omeprazole 20 MG TAKE 1 CAPSULE BY [facility] EVERY DAY 30 MINUTES BEFORE MORNING MEAL [...] Problem Status W/U Status Risk Notes Problem 067488001 Family history of colon cancer (Z80.0) Active confirmed He has a family history of colon cancer in his father. Problem 29804738 Ulcerative colitis (K51.90) Active confirmed He was diagnosed with ulcerative colitis in the early . His symptoms have been controlled with sulfasalazine 500 mg 4 tablets twice a day. His bowel movements have been normal, soft, and formed. Lacks alarming features of mucus or blood in his stool, abdominal pain or cramping. Problem 521503242 History of colon polyps (Z86.010) Active confirmed His last colonoscopy was in 2018, and he was noted to have 1 polyp. At time of visit report is not available to review. Problem 374492407 Long-term use of high-risk medication (Z79.899) Active confirmed Problem 335501592 Acid reflux (K21.9) Active confirmed His reflux symptoms are controlled with omeprazole 20 mg as needed. He denies having any nausea, vomiting, or reflux. Problem 976958806 Malabsorption (K90.9) Active confirmed He has had a low vitamin D level in the past. He is not currently on oral vitamin D Encounters Encounter Location Date Provider Diagnosis [address] [place] [address] 09/18/2023 Miri Davis Diarrhea R19.[address] [place] [address] 09/25/2023 Miri Davis [address] [place] [address] 10/05/2023 Miri Davis Assessments Encounter Date Diagnosis [...] A[employer] Choice Pos II E2 [address] [place] [address] [id number] 2 [employer]BE MCGOVERN Spouse - patient is the spouse of the insured Medical (General) History Medical History History ICD Code GERD Ulcerative Colitis Colon Polyps Skin Cancer Surgical History Surgery Date(Month/Year) Colonoscopy 2018 Skin Cancer Removal [place] Teeth Extraction Hospitalization History Reason Date(Month/Year) Ulcerative Colitis
--- OUTSIDE RECORDS SUMMARY | 2024-09-15 12:35 | XMS_ITS | Clinical Summary ---
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
--- OUTSIDE RECORDS SUMMARY | 2024-09-15 12:35 | XMS_ITS | Clinical Summary ---
Author Organization [facility] Address [address] [place] [address] Care Team Providers Care Surveillance Manager Name Role Phone Mariluz Salcedo NP Primary Care Provider [phone] Allergies No known active allergies Medications azaTHIOprine (IMURAN) 50 mg tablet TAKE THREE TABLETS BY MOUTH ONCE DAILY 06/02/19 19 Active folic acid (FOLVITE) 1 mg tablet Take 1 tab by mouth once daily Active omeprazole (PriLOSEC) 20 mg capsule Take 1 capsule (20 mg total) by mouth daily 04/30/19 19 Active turmeric, bulk, 100 % powder 2 times daily Active cholecalciferol (VITAMIN D-3) 2000 unit capsule Take 1 capsule (2,000 Units total) by mouth daily 30 capsule 02/15/19 20 Active losartan (COZAAR) 25 mg tablet Take 1 tablet (25 mg total) by mouth daily Active budesonide EC (ENTOCORT EC) 3 mg 24 hr capsule TAKE 3 CAPSULES BY MOUTH EVERY MORNING 270 capsule 1 02/22/19 25 Active sulfaSALAzine (AZULFIDINE) 500 mg tabletIndications :Ulcerative colitis, unspecified, without complications (HCC) TAKE 4 TABLETS BY MOUTH EVERY 12 HOURS 90 DAYS 720 tablet 4 09/08/19 25 Active sulfaSALAzine (AZULFIDINE) 500 mg tablet Take 2 tablets (1,000 mg total) by mouth 4 times daily 04/07/19 19 025 Discontinued Active Problems Problem Noted Date Diagnosed Date Family history of colon cancer in father 024 History of colonic polyps 11/24/2023 Ulcerative colitis, chronic, unspecified complic ation 11/24/[address] scan of lung 02/24/2019 Arthritis of left acromioclavicular joint 2019 Overview (02/16/2019): Added automatically from request for surgery [id number] Ulcerative colitis 06/19/2011 Assessment & Plan (02/24/2019 10:17 AM OIL FIELD EQUIPMENT MECHANIC SUPERVISOR): Stable on current home meds Resolved Problems Problem Noted Date Diagnosed Date Resolved Date Chest pain 02/24/2019 05/16/2019 Assessment & Plan (02/24/2019 10:20 AM OIL FIELD EQUIPMENT MECHANIC SUPERVISOR): Atypical, serial enzymes Other headache syndrome 02/24/201906/2019 Biceps tendonitis on left 02/16/2019 Overview (02/16/2019): Added automatically from request for surgery [id number] Nontraumatic rotator cuff tear, left 02/16/2019 05/16/2019 Overview (02/16/2019): Added automatically from request for surgery [id number] Impingement syndrome of left shoulder 02/16/2019 05/16/2019 Overview (02/16/2019): Added automatically from request for surgery [id number] Surgical History Surgery Date Site/Laterality Comments SKIN CANCER EXCISION COLONOSCOPY probably 5 years ago COLONOSCOPY 01/27/2024 Medical History Medical History Date Comments Ulcerative colitis Skin cancer Adenomatous colon polyp HLD (hyperlipidemia) [...] on file Legal Sex Male 7:35 AM OIL FIELD EQUIPMENT MECHANIC SUPERVISOR Gender Identity Not on file Sexual Orientation Not on file Obstetrics History Last Filed Vital Signs Vital Sign Reading Time Taken Comments Blood Pressure 149/106 01/27/2024 11:50 AM OIL FIELD EQUIPMENT MECHANIC SUPERVISOR BP was elevated preop, pt stated has not taken his bp med today, will take when he gets home. Pulse 72 01/27/2024 11:50 AM OIL FIELD EQUIPMENT MECHANIC SUPERVISOR Temperature 36.6 C (97.8 F) 01/27/2024 11:50 AM OIL FIELD EQUIPMENT MECHANIC SUPERVISOR Respiratory Rate 18 01/27/2024 11:5 0 AM OIL FIELD EQUIPMENT MECHANIC SUPERVISOR Oxygen Saturation 96% 01/27/2024 11: 50 AM OIL FIELD EQUIPMENT MECHANIC SUPERVISOR Inhaled Oxygen Concentration - - Weight 106.6 kg (235 lb) 01/27/2024 9:3 3 AM OIL FIELD EQUIPMENT MECHANIC SUPERVISOR Height 182.9 cm (6') 01/27/2024 9:33 AM OIL FIELD EQUIPMENT MECHANIC SUPERVISOR Body Mass Index 31.87 01/27/2024 9:33 AM OIL FIELD EQUIPMENT MECHANIC SUPERVISOR Plan of Treatment Health Maintenance Due Date [...] Associated Diagnosis Comments COLONOSCOPY 01/27/2024 9:34 AM OIL FIELD EQUIPMENT MECHANIC SUPERVISOR from Last 3 Months or Most Recently Relevant to Health Maintenance Results * Colonoscopy (01/27/2024 9:34 AM OIL FIELD EQUIPMENT MECHANIC SUPERVISOR) Anatomical Region Laterality Modality Other Narrative Procedure Note Hadley Spear, - 01/27/2024 9:34 AM CST [facility] Patient Name: Elvin Mcgovern Procedure Date: 01/27/2024 9:34 AM Date of : 1970 Admit Type: Outpatient Age: 53 Gender: Male Attending MD: Hadley Spear D.O. Room: [facility] ENDOSCOPY ROOM 2 Note Status: Finalized Patient [...] passed under direct vision. The Pediatric Colonoscope [id number] was introduced through the anus and advanced [...] 9:34 AM Procedure Code(s): --- Professional --- 29046, Colonoscopy, flexible; with biopsy, single or multiple --- Technical --- 51233, Colonoscopy, flexible; with biopsy, single or multiple [...] neoplasm of digestive organs CPT copyright 2020 [employer] [employer]. All rights reserved. The codes documented in this report are preliminary and upon physician coder reviewmay be revised to meet current compliance requirements. Recognized by the [place] [employer] for promoting quality in endoscopy Hadley Spear DO ENDOSCOPY PROCEDURES Final Res ult from Last 3 Months or Most Recently Relevant to Health Maintenance Additional Health Concerns Infection Onset Date Last Indicated C. difficile Comment:na 09/02/2006 09/02/2006 Insurance [facility] CHOICE PLUS [facility] CHOICE PLUS [facility] HMO Advance Directives For more information, please contact: [phone] * Full Code (Latest Code Status on File) Date Activated Date Inactivated Comments 01/27/2024 9:28 AM 01/27/2024 4:08 PM * Full Code Date Activated Date Inactivated Comments 01/27/2024 9:28 AM 01/27/2024 9:28 AM * Full Code Date Activated Date Inactivated Comments 02/23/2019 11:38 PM 02/24/2019 4:33 PM Care Teams Surveillance Manager Relationship Specialty Start Date End Date Mariluz Salcedo NP [address] [place] [address] PCP - General Internal Medicine 11/05/23
[2024-09-15 18:28] LABS: Alanine Aminotransferase 85 U/L (6-50); Albumin Level 4.9 g/dL (3.5-5.1); Alkaline Phosphatase 76 U/L (38-126); Anion Gap 7 mmol/L (4-12); Aspartate Amino Transferase 56 U/L (17-59); Bilirubin,Total 1.1 mg/dL (0.2-1.3); Blood Urea Nitrogen 19 mg/dL (9-20); Calcium 9.9 mg/dL (8.4-10.2); Carbon Dioxide 23 mmol/L (22-30); Chloride 105 mmol/L (98-107); Estimated Glomerular Filt Rate > 60; Glucose 140 mg/dL (65-110); Potassium 4.3 mmol/L (3.4-5.0); Sodium 135 mmol/L (137-145); Total Protein 7.9 g/dL (6.3-8.2)
[2024-09-15 18:43] LABS: Hemoglobin A1C 6.0 % (<5.7)
== END 2024-09-15 12:32 | disposition home or self-care (01) ==
LOC: ANHGOSHLAB 12:32
PROVIDERS: PCP Nurse Practitioner; Visit Provider Nurse Practitioner
DX: R73.9 Hyperglycemia, unspecified (principal)
CPT/HCPCS: 36415; 80053; 83036